=== PATIENT | male | born 1950 | race Caucasian/White ===

== ENCOUNTER 2021-09-25 10:06 | Observation (INO) ==
--- NOTE | 2021-09-25 10:42 | Emergency Department Note ---
History of Present Illness General Chief Complaint: Chest Pain Stated Complaint: CHEST PAIN,BRADYCARDIA,NOT FEELING WELL Time Seen by Provider: 09/25/21 10:20 History of Present Illness Provider Complaint: chest pain Onset (ago): day(s) 1 Duration: intermittent Pain Location: substernal Pain Radiation: none Severity: moderate Maximum Pain Intensity: 6 Current Pain Intensity: 6 Quality: + heaviness Relieved By: + nothing Exacerbated By: + nothing Context: + recent travel; no recent illness, no recent surgery, no recent immobilization, no trauma/injury or no new medications Associated symptoms: + dyspnea; no nausea, no diaphoresis, no syncope, no palpitations, no fever or no cough Patient is visiting his daughter from [place]. Daughter states that the patient has a known coronary artery disease with a significant occlusion in a vessel however they are not sure which one. 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 Past Med/Surg History Medical History (Updated 09/25/21 @ 13:48 by Benedicto Srivastava) CAD (coronary artery disease) HLD (hyperlipidemia) HTN (hypertension) No pertinent family history Surgical History (Updated 09/25/21 @ 10:40 by Benedicto Srivastava) H/O abdominal aortic aneurysm repair Social History Smoking Status: Current every day smoker Tobacco Type: Cigarettes Feels Safe at Home: Yes Review of Systems A total of 10 systems reviewed and were otherwise negative Physical Exam Vital Signs Vital Signs - 24 hr 09/25/21 10:14 09/25/21 10:27 09/25/21 10:28 Temperature 36.3 C L Temperature Source Skin Pulse Rate 73 73 71 Pulse Rate [Apical] Pulse Rate from SpO2 Sensor 66 72 Pulse Rhythm Regular Pulse Rhythm [Apical] Pulse Strength Normal Pulse Strength [Apical] Respiratory Rate 20 17 19 Respiratory Effort / Characteristics Non-Labored Spontaneous Respiratory Depth Normal Respiratory Pattern Regular Blood Pressure 114/70 135/68 Blood Pressure [Right Arm] Blood Pressure Mean 84 90 Blood Pressure Mean [Right Arm] Blood Pressure Position [Right Arm] Pulse Oximetry 93 93 93 Oxygen Delivery Method Room Air Oxygen Flow Rate Sepsis Recent Fever Within 48 Hours No Sepsis New/Unexplained Change in Mental Status N/A Sepsis Action Taken by Nursing No Action Required 09/25/21 10:30 09/25/21 10:37 09/25/21 10:39 Temperature Temperature Source Pulse Rate 73 Pulse Rate [Apical] Pulse Rate from SpO2 Sensor 73 Pulse Rhythm Pulse Rhythm [Apical] Pulse Strength Pulse Strength [Apical] Respiratory Rate 19 Respiratory Effort / Characteristics Respiratory Depth Respiratory Pattern Blood Pressure Blood Pressure [Right Arm] Blood Pressure Mean Blood Pressure Mean [Right Arm] Blood Pressure Position [Right Arm] Pulse Oximetry 93 96 97 Oxygen Delivery Method Room Air Room Air Oxygen Flow Rate 0 Sepsis Recent Fever Within 48 Hours Sepsis New/Unexplained Change in Mental Status Sepsis Action Taken by Nursing 09/25/21 10:45 09/25/21 11:00 09/25/21 11:02 Temperature Temperature Source Pulse Rate 65 62 Pulse Rate [Apical] 60 Pulse Rate from SpO2 Sensor 65 61 Pulse Rhythm Pulse Rhythm [Apical] Regular Pulse Strength Pulse Strength [Apical] Normal Respiratory Rate 21 20 20 Respiratory Effort / Characteristics Non-Labored Spontaneous Respiratory Depth Normal Respiratory Pattern Regular Blood Pressure Blood Pressure [Right Arm] 135/68 Blood Pressure Mean Blood Pressure Mean [Right Arm] 90 Blood Pressure Position [Right Arm] Lying Pulse Oximetry 92 92 99 Oxygen Delivery Method Room Air Oxygen Flow Rate Sepsis Recent Fever Within 48 Hours Sepsis New/Unexplained Change in Mental Status Sepsis Action Taken by Nursing 09/25/21 11:15 09/25/21 11:30 09/25/21 11:45 Temperature Temperature Source Pulse Rate 68 64 57 L Pulse Rate [Apical] Pulse Rate from SpO2 Sensor 66 64 58 L Pulse Rhythm Pulse Rhythm [Apical] Pulse Strength Pulse Strength [Apical] Respiratory Rate 15 21 16 Respiratory Effort / Characteristics Respiratory Depth Respiratory Pattern Blood Pressure Blood Pressure [Right Arm] Blood Pressure Mean Blood Pressure Mean [Right Arm] Blood Pressure Position [Right Arm] Pulse Oximetry 91 91 92 Oxygen Delivery Method Oxygen Flow Rate Sepsis Recent Fever Within 48 Hours Sepsis New/Unexplained Change in Mental Status Sepsis Action Taken by Nursing 09/25/21 12:03 09/25/21 12:13 09/25/21 12:15 Temperature Temperature Source Pulse Rate 62 61 62 Pulse Rate [Apical] Pulse Rate from SpO2 Sensor 61 63 Pulse Rhythm Pulse Rhythm [Apical] Pulse Strength Pulse Strength [Apical] Respiratory Rate 18 22 19 Respiratory Effort / Characteristics Respiratory Depth Respiratory Pattern Blood Pressure 109/71 102/63 Blood Pressure [Right Arm] Blood Pressure Mean 83 76 Blood Pressure Mean [Right Arm] Blood Pressure Position [Right Arm] Pulse Oximetry 93 93 Oxygen Delivery Method Oxygen Flow Rate Sepsis Recent Fever Within 48 Hours Sepsis New/Unexplained Change in Mental Status Sepsis Action Taken by Nursing 09/25/21 12:20 Temperature Temperature Source Pulse Rate 66 Pulse Rate [Apical] Pulse Rate from SpO2 Sensor 66 Pulse Rhythm Pulse Rhythm [Apical] Pulse Strength Pulse Strength [Apical] Respiratory Rate 21 Respiratory Effort / Characteristics Respiratory Depth Respiratory Pattern Blood Pressure 101/61 Blood Pressure [Right Arm] Blood Pressure Mean 74 Blood Pressure Mean [Right Arm] Blood Pressure Position [Right Arm] Pulse Oximetry 93 Oxygen Delivery Method Oxygen Flow Rate Sepsis Recent Fever Within 48 Hours Sepsis New/Unexplained Change in Mental Status Sepsis Action Taken by Nursing Physical Exam GENERAL: He is oriented to person, place, and time. He appears well-developed and well-nourished. He does not appear distressed. HENT: Exam performed. - Head: Normocephalic and atraumatic. - Right Ear: External ear normal. No mastoid tenderness. - Left Ear: External ear normal. No mastoid tenderness. - Mouth/Throat: The oropharynx is clear and moist. No trismus in the jaw. No dental abscesses or uvula swelling. No oropharyngeal exudate or tonsillar abscesses. EYES: Conjunctivae and EOM are normal. Pupils are equal, round, and reactive to light. Right eye exhibits no discharge. Left eye exhibits no discharge. No scleral icterus. NECK: Normal range of motion. Neck supple. No JVD present. No spinous process tenderness present. No carotid bruit present. No rigidity. No tracheal deviation and normal range of motion present. No Brudzinski's sign and no Kernig's sign noted. CV: Normal rate, regular rhythm, normal heart sounds and intact distal pulses. There is no peripheral edema. Palpable radial pulses bue. PULM/CHEST: Effort normal and breath sounds normal. No respiratory distress. No stridor. He has no wheezes. He has no rales. - Chest Wall: He exhibits no tenderness. ABD: The abdomen is soft. Bowel sounds are normal. He has no distension. No mass is present. There is no tenderness. There is no rebound, no guarding, no Dyer's sign and no tenderness at McBurney's point. Rovsig negative. MUSC/SKEL: Normal range of motion. There is no peripheral edema, tenderness or deformity. LYMPH: No cervical adenopathy. NEURO: He is alert and oriented to person, place, and time. He has normal strength. No cranial nerve deficit or sensory deficit. Coordination and gait normal. GCS eye subscore is 4. GCS verbal subscore is 5. GCS motor subscore is 6. Cerebellar tests wnl. SKIN: Skin is warm and dry. He is not diaphoretic. PSYCH: He has a normal mood and affect. Behavior is normal. Judgment and thought content normal. Course Course 1027: The patient was evaluated in room B10. A complete history and physical exam was performed Cardiac monitoring: An order was placed for continuous cardiac monitoring. The monitor shows a rate of 70 with sinus rhythm 1245: Vital signs stable. Labs within normal limits with exception of elevated D-dimer. CTA of the chest negative for PE. Patient does report his chest pain has resolved status post 1 sublingual nitroglycerin. Patient will be admitted to the [facility]ist team for chest pain rule out ACS Dr. Prince team notified. Administered Medications Discontinued Medications Aspirin (Aspirin 81 Mg Chew) 324 mg PO NOW STA Stop: 09/25/21 12:10 Last Admin: 09/25/21 12:14 Dose: 324 mg Documented by: [id number] Ioversol (Optiray 320 125ml) 120 ml IV ONCE ONE Stop: 09/25/21 12:06 Last Admin: 09/25/21 11:59 Dose: 120 ml Documented by: [id number] Nitroglycerin (Nitroglycerin Sl 0.4 Mg/Tab Tab) 0.4 mg SL NOW STA Stop: 09/25/21 12:10 Last Admin: 09/25/21 12:14 Dose: 0.4 mg Documented by: [id number] Medical Decision Making Laboratory Data Result diagrams: 09/25/21 10:35 09/25/21 10:35 Labs: Lab Results 09/25/21 09/25/21 09/25/21 Range/Units 10:35 10:35 10:35 WBC 7.78 (4.8-10.8) K/ul RBC 5.33 (4.63-6.08) M/uL Hgb 16.1 (14.0-18.0) g/dl Hct 48.4 (40.1-51.0) % MCV 90.8 (80.0-100.0) fL MCH 30.2 (25.0-34.0) pg MCHC 33.3 (32.0-36.0) g/dL RDW Std Deviation 47.4 H (36.4-46.3) fL RDW Coeff of Lefty 14.2 (11.5-14.5) % Plt Count 217 (130-400) K/uL MPV 10.2 (9.4-12.4) fL Immature Gran % (Auto) 0.5 % Neut % (Auto) 69.2 % Lymph % (Auto) 17.2 % [place] % (Auto) 9.5 % Eos % (Auto) 3.1 % Baso % (Auto) 0.5 % Neut # (Auto) 5.38 (1.4-6.5) K/uL Lymph # (Auto) 1.34 (1.2-3.4) K/uL [place] # (Auto) 0.74 (0.24-0.82) K/uL Eos # (Auto) 0.24 (0-0.50) K/uL Baso # (Auto) 0.04 (0-0.2) K/uL Immature Gran # (Auto) 0.04 H (0.00-0.02) K/uL PT 12.0 (9.0-12.0) Seconds INR 1.1 (0.9-1.1) APTT 32.0 H (21.0-31.0) Seconds PTT Ratio 1.2 D-Dimer 4150 H* (0-500) ug/L FEU Sodium 136 (136-145) mmol/L Potassium 4.3 (3.5-5.1) mmol/L Chloride 103 (98-107) mmol/L Carbon Dioxide 27 (21-32) mmol/L Anion Gap 6 (3-11) BUN 18 (6-23) mg/dl Creatinine 1.10 (0.6-1.4) mg/dl Est Cr Clr Drug Dosing 70.6 ml/min Est GFR ( Amer) 77.3 ml/min Est GFR (Non-Af Amer) 66.7 ml/min BUN/Creatinine Ratio 16.4 (10-20) Glucose 125 H (70-99(Fasting)) mg/dl Calcium 9.1 (8.5-10.1) mg/dl Troponin I High Sens 9.7 (0-20) pg/ml Lipase 37 (11-82) U/L SARS-CoV-2, RNA, NAAT (NEGATIVE) 09/25/21 09/25/21 Range/Units 12:25 12:57 WBC (4.8-10.8) K/ul RBC (4.63-6.08) M/uL Hgb (14.0-18.0) g/dl Hct (40.1-51.0) % MCV (80.0-100.0) fL MCH (25.0-34.0) pg MCHC (32.0-36.0) g/dL RDW Std Deviation (36.4-46.3) fL RDW Coeff of Lefty (11.5-14.5) % Plt Count (130-400) K/uL MPV (9.4-12.4) fL Immature Gran % (Auto) % Neut % (Auto) % Lymph % (Auto) % [place] % (Auto) % Eos % (Auto) % Baso % (Auto) % Neut # (Auto) (1.4-6.5) K/uL Lymph # (Auto) (1.2-3.4) K/uL [place] # (Auto) (0.24-0.82) K/uL Eos # (Auto) (0-0.50) K/uL Baso # (Auto) (0-0.2) K/uL Immature Gran # (Auto) (0.00-0.02) K/uL PT (9.0-12.0) Seconds INR (0.9-1.1) APTT (21.0-31.0) Seconds PTT Ratio D-Dimer (0-500) ug/L FEU Sodium (136-145) mmol/L Potassium (3.5-5.1) mmol/L Chloride (98-107) mmol/L Carbon Dioxide (21-32) mmol/L Anion Gap (3-11) BUN (6-23) mg/dl Creatinine (0.6-1.4) mg/dl Est Cr Clr Drug Dosing ml/min Est GFR ( Amer) ml/min Est GFR (Non-Af Amer) ml/min BUN/Creatinine Ratio (10-20) Glucose (70-99(Fasting)) mg/dl Calcium (8.5-10.1) mg/dl Troponin I High Sens 8.8 (0-20) pg/ml Lipase (11-82) U/L SARS-CoV-2, RNA, NAAT NEGATIVE (NEGATIVE) Imaging Data CT scan - chest: Radiologist's impression: CHEST CTA for PULMONARY ARTERIES CT DOSE: 516.52 mGy.cm HISTORY: Left-sided chest pain. Cough. Shortness of breath. TECHNIQUE: Multiaxial CT images of the chest were performed following the intravenous administration of contrast to evaluate the pulmonary arteries. Maximal intensity projection images were also obtained. A dose lowering technique was utilized adhering to the principles of ALARA. COMPARISON STUDY: None. FINDINGS: The heart is borderline enlarged. No pleural or pericardial effusions. There is a left aortic arch with an aberrant right subclavian artery. No evidence for a dissection within the ascending thoracic aorta or aortic arch. Inadequate contrast within the descending thoracic aorta to evaluate for a dissection. No filling defects within the pulmonary arteries to suggest a pulmonary embolus. No fractures within the visualized osseous structures. Limited views of the upper abdomen demonstrate a normal liver and spleen. There is mild elevation the right hemidiaphragm. Mild aneurysmal dilatation of the di stal descending thoracic aorta measuring up to 3.8 cm in diameter. The thyroid gland enhances normally. No mediastinal or hilar lymphadenopathy. Normal caliber esophagus. No pneumothorax. The central airways are patent. No focal lung consolidations to suggest pneumonia. No evidence for pulmonary edema. IMPRESSION: 1. No evidence for pulmonary embolus. 2. No focal lung consolidations to suggest pneumonia. 3. Mild aneurysmal dilatation of the distal descending thoracic aorta measuring up to 3.[address] ACT 112: Negative or not required by law. Electronically signed by: Ricardo Kasper M.D. 09/25/2021 12:25 PM Dictated:09/25/21 1213 Transcribed: 09/25/21 1213 Chest x-ray: Radiologist's impression: [facility], [place] [phone] XRay Report Patient:RIKA HEREDIA Admit Date:09/25/21 MR#:[id number] Address1:[address] [place] [address] Acct ID:[id number] Address2: Date:[address] Hospital Zip:[place] [address] Age:70 Location:ED Sex:M Room/Bed: Att Phy: Diagnosis:CHEST PAIN,BRADYCARDIA,NOT FEELING WELL [place] Phy:PCP,NO Service Date:09/25/21 [facility] Phy: Interpreting Phy:Rich Lim MDAdmit Phy: Ordering Phy:Benedicto Srivastava MD cc: ~ XR chest 1V portable CLINICAL HISTORY: Chest Pain TECHNIQUE: Single frontal radiograph of the chest was obtained. Comparison: None available at the time of this dictation. FINDINGS: No lines and tubes are seen. The cardiomediastinal silhouette is normal. The lungs are clear. No evidence of pleural effusion or pneumothorax. IMPRESSION: No acute chest disease. ACT 112: Negative or not required by law. Electronically signed by: Rich Lim M.D. 09/25/2021 11:22 AM Dictated:09/25/211120 Transcribed: 09/25/211120 ECG Data Indication: chest pain Rate (beats per minute): 68 Rhythm: normal sinus Findings: no ST depression, no ST elevation or no prolonged QT MDM Narrative Vital signs stable. Labs within normal limits with exception of elevated D- dimer. CTA of the chest negative for PE. Patient does report his chest pain has resolved status post 1 sublingual nitroglycerin. Patient will be admitted to the [facility] hospitalist team for chest pain rule out ACS Dr. Prince team notified. Impression & Plan Chest pain Discharge Plan Visit Data Chief Complaint: Chest Pain Stated Complaint: CHEST PAIN,BRADYCARDIA,NOT FEELING WELL ED Provider: Benedicto Srivastava Discharge Problem: Chest pain Patient Disposition: Being Evaluated by Hospitalist Forms Stand Alone Forms: My [facility] Referrals Referrals: PCP,NO [Primary Care Provider] -
[2021-09-25 11:05] LABS: Basophils # (auto) 0.04 K/uL (0-0.2); Basophils % (auto) 0.5 %; Eosinophils # (auto) 0.24 K/uL (0-0.50); Eosinophils % (auto) 3.1 %; Hematocrit (blood only) 48.4 % (40.1-51.0); Hemoglobin 16.1 g/dl (14.0-18.0); Immature Granulocytes # (auto) 0.04 K/uL (0.00-0.02); Immature Granulocytes % (auto) 0.5 %; Lymphocytes # (auto) 1.34 K/uL (1.2-3.4); Lymphocytes % (auto) 17.2 %; Mean Corpuscular Hemoglobin 30.2 pg (25.0-34.0); Mean Corpuscular Hgb Conc 33.3 g/dL (32.0-36.0); Mean Corpuscular Volume 90.8 fL (80.0-100.0); Mean Platelet Volume 10.2 fL (9.4-12.4); Monocytes # (auto) 0.74 K/uL (0.24-0.82); Monocytes % (auto) 9.5 %; Neutrophils # (auto) 5.38 K/uL (1.4-6.5); Neutrophils % (auto) 69.2 %; Platelet Count 217 K/uL (130-400); RDW Coefficient of Variation 14.2 % (11.5-14.5); RDW Standard Deviation 47.4 fL (36.4-46.3); Red Blood Count 5.33 M/uL (4.63-6.08); White Blood Count 7.78 K/ul (4.8-10.8)
[2021-09-25 11:17] LABS: INR 1.1 (0.9-1.1); Partial Thromboplastin Ratio 1.2
[2021-09-25 11:19] LABS: BUN Creatinine Ratio 16.4 (10-20); Calcium 9.1 mg/dl (8.5-10.1); Creatinine Clr Calc Pharmacy 70.6 ml/min; Est GFR (African American) 77.3 ml/min; Est GFR (Non-African American) 66.7 ml/min; Potassium 4.3 mmol/L (3.5-5.1)
[2021-09-25 11:20] LABS: D Dimer 4150 ug/L FEU (0-500)
--- NOTE | 2021-09-25 11:23 | XRay Report ---
XR chest 1V portable CLINICAL HISTORY: Chest Pain TECHNIQUE: Single frontal radiograph of the chest was obtained. Comparison: None available at the time of this dictation. FINDINGS: No lines and tubes are seen. The cardiomediastinal silhouette is normal. The lungs are clear. No evid ence of pleural effusion or pneumothorax. IMPRESSION: No acute chest disease. ACT 112: Negative or not required by law. Electronically signed by: Rich Lim M.D. 09/25/2021 11:22 AM
[2021-09-25 11:25] LABS: Troponin I High Sensitivity 9.7 pg/ml (0-20)
[2021-09-25] MEDS ORDERED: OPTIRAY 320 125ml IV ONE (12:05)
[2021-09-25] MEDS ORDERED: NITROGLYCERIN SL 0.4 MG/TAB TAB SL STA (12:09)
[2021-09-25] MEDS ORDERED: ASPIRIN 81 MG CHEW PO STA (12:09)
--- NOTE | 2021-09-25 12:27 | CT Scan Report ---
CHEST CTA for PULMONARY ARTERIES CT DOSE: 516.52 mGy.cm HISTORY: Left-sided chest pain. Cough. Shortness of breath. TECHNIQUE: Multiaxial CT images of the chest were performed following the intravenous administration of contrast to evaluate the pulmonary arteries. Maximal intensity projection images were also obtaine d. A dose lowering technique was utilized adhering to the principles of ALARA. COMPARISON STUDY: None. FINDINGS: The heart is borderline enlarged. No pleural or pericardial effusions. There is a left aort ic arch with an aberrant right subclavian artery. No evidence for a dissection within the ascending t horacic aorta or aortic arch. Inadequate contrast within the descending thoracic aorta to evaluate fo r a dissection. No filling defects within the pulmonary arteries to suggest a pulmonary embolus. No f ractures within the visualized osseous structures. Limited views of the upper abdomen demonstrate a n ormal liver and spleen. There is mild elevation the right hemidiaphragm. Mild aneurysmal dilatation o f the distal descending thoracic aorta measuring up to 3.8 cm in diameter. The thyroid gland enhances normally. No mediastinal or hilar lymphadenopathy. Normal caliber esophagus. No pneumothorax. The ce ntral airways are patent. No focal lung consolidations to suggest pneumonia. No evidence for pulmonar y edema. IMPRESSION: 1. No evidence for pulmonary embolus. 2. No focal lung consolidations to suggest pneumonia. 3. Mild aneurysmal dilatation of the distal descending thoracic aorta measuring up to 3.[address] ACT 112: Negative or not required by law. Electronically signed by: Ricardo Kasper M.D. 09/25/2021 12:25 PM
--- NOTE | 2021-09-25 13:08 | Electrocardiogram Report ---
Test Reason : Blood Pressure : / mmHG Vent. Rate : 068 BPM Atrial Rate : 068 BPM P-R Int : 164 ms QRS Dur : 118 ms QT Int : 404 ms P-R-T Axes : 082 -66 057 degrees QTc Int : 429 ms Poor data quality, interpretation may be adversely affected Normal sinus rhythm Left axis deviation Poor R wave progression, consider anterior NE vs. lead placement vs. LVH Abnormal ECG No previous ECGs available Confirmed by Reji Amaro ([id number]) on 09/25/2021 1:07:37 PM Referred By: Confirmed By:Tony Amaro
--- NOTE | 2021-09-25 14:44 | History & Physical Report ---
Date of Service September 25, 2021 Assessment & Plan (1) Angina at rest: Plan: Patient with coronary artery disease, HLD, current smoker, and family history. Comes to EMD for chest pressure occurring at rest, but relieved with activity. This has waxed and waned over the past 3 days. His Cardiac enzymes are negative, no other ECG available for comparison. DDX: Anginal vs. atypical non cardiac chest pain - Observe overnight for symptoms with prn NTG SL or NTP - Continue BB - Continue ASA - Continue Atorvastatin 20mg PO daily - ECHO in morning - Cardiology consultation for stratification and eval for possible invasive evaluation - Obtain records from [facility] [employer] [facility] is pending (2) CAD (coronary artery disease): Plan: Reported as RCA disease with good collateral flow- however awaiting cardiology records - symptom evaluation/control as above - may need prn ant-anginal if this is cardiac - continue risk reduction meds as above (3) Smoker: Plan: Has decreased his smoking over the past 2-3 years - currently 5 per day - 20+ year history - Continue with nicotene patches PRN (4) PAD (peripheral artery disease): Plan: Hx of femoral aneursym with bypass - continue asa - continue statin (5) HLD (hyperlipidemia): Plan: Continue atorvastatin 20mg daily - adjust if warrented (6) HTN (hypertension): Plan: Well controlled- Lisonpril dose just decreased to 5mg PO daily (7) Aortic root dilation: Plan: No previous studies available for comparison stable on CTA follows with his cardiology and PCP team in [place] History of Present Illness Primary Care Provider: NO PCP 70 YOM with medical history of: Aortic Root dilation, Aortic Aneurysm repair, femoral bypass surgery, CAD (RCA reported), HTN, HLD, current smoker (5 cigarette/day). Patient is from [place] and is in the area visiting family. Patient comes to the EMD today accompanied by his daughters. He came to the EMD for complaints of chest pressure. The pressure began of Saturday after they got home from running errands and shopping, this lasted for approx 20-30 minutes and occurred while he was resting. This was relieved by him getting up and walking around. This occurred again Saturday evening while he was resting and again was relieved by him getting up and walking around. Saturday afternoon he had another episode after he went inside to sit down. This episode was associated with increase in fatigue and possibly some right arm pain, but he is unsure if these occurred at the same time. He had an episode this morning (09/25/21) as well that lasted approx 2-5 minutes and went away. He is currently without these symptoms and his is standing at the bedside. In the EMD the patient had routine labs performed to include D-dimer and HScTNI. The patient HScTNI was negative x2 in the EMD. His D-dimer was elevated and he had CTA of the chest completed that was negative for PE or pulmonary disease. Noted aortic root dilation. His ECG does not reveal acute ST elevation. With no other ECGs to compare- il notable for LVH. The patient follows with his [facility] [employer] in [place] Dr. Small , he originally followed them in 2016 for his dilated aortic root, he reports that he had a cardiac cath done at that time and he had occlusion of his he believes his Right Coronary, but was told that his heart was still getting good blood flow. He was having some chest pains over the past month as well and this led him to getting a dobutamine stress-echo done in August 2019. His family is able to review his my chart information, but these results are not in the computer. They do endorse however that his [employer] mentioned that if his symptoms continued then consider catheterization. He is not on any antianginals as outpatient. Reports that his Lisinopril was decreased from 10-5mg daily secondary to borderline blood pressure. Patient will be observed for symptomatology and any ECG changing. Will attempt to get his previous records from his [employer] office. Will consult cardiology for overall evaluation risk stratification and evaluation for invasive study. COVID test on admission is: NEGATIVE Allergies Allergy/AdvReac Type Severity Reaction Status Date / Time No Known Allergies Allergy Unverified 09/25/21 14:32 Home Medications Medication Instructions Recorded Confirmed Type acetaminophen 500 mg tablet 1,000 mg PO Q6H PRN Pain 09/25/21 09/25/21 History (Tylenol Extra Strength) aspirin 81 mg tablet,delayed 81 mg PO DAILY 09/25/21 09/25/21 History release atorvastatin 20 mg tablet 20 mg PO DAILY 09/25/21 09/25/21 History coenzyme Q10 100 mg capsule 100 mg PO QPM 09/25/21 09/25/21 History (CoQ-10) hydrocortisone 2.5 % topical cream 1 applic ME BID PRN Hemorrhoids 09/25/21 09/25/21 History with perineal applicator ibuprofen 200 mg tablet 800 mg PO Q6H PRN Pain 09/25/21 09/25/21 History lidocaine 5 % topical cream 1 applic topical TID PRN ANORECTAL 09/25/21 09/25/21 History PAIN lisinopril 10 mg tablet 5 mg PO DAILY 09/25/21 09/25/21 History metoprolol succinate 50 mg 50 mg PO DAILY 09/25/21 09/25/21 History tablet,extended release 24 hr [id number]-hxu C 250 1 tab PO BID 09/25/21 09/25/21 History mg-herbal no.124 11.66 mg chewable tablet (Airborne Gummy) sennosides 8.6 mg-docusate sodium 1 tab-cap PO YEARLY PRN 09/25/21 09/25/21 History 50 mg tablet (Senexon-S) Constipation Past Med/Surg History Medical History Aortic root dilation CAD (coronary artery disease) HLD (hyperlipidemia) HTN (hypertension) No pertinent family history Obesity PAD (peripheral artery disease) Smoker Surgical History (Updated 09/25/21 @ 14:34 by VAUGHN Coleman) H/O abdominal aortic aneurysm repair S/P femoral-femoral bypass surgery Family History (Updated 09/25/21 @ 14:35 by VAUGHN Coleman) Mother Cancer Diabetes Brother Coronary heart disease Son Coronary heart disease Father Coronary heart disease Brother Coronary heart disease Sister Diabetes Other Dyslipidemia Hypertension Denies family history of Sudden Kidney disease Lung cancer Stroke Social History Smoking Status: Current every day smoker Tobacco Type: Cigarettes Cigarettes Per Day: 1 pack per 3-4 days; Hx Alcohol Use: Yes Alcohol type: beer Hx Substance Use: No Preferred Language: Romansh Communication Ability: Effective Spring Encaser Required: No Beliefs That Will Affect Care: None Current Living Situation: Alone Feels Safe at Home: Yes Assistive Devices: Cane Review of Systems Review of Systems: REVIEW OF SYSTEMS: Constitutional: No fever, sweats or chills Eyes: No diplopia, no worsening or blurred vision ENT: normal hearing, no trouble swallowing Respiratory: No cough, sputum, dyspnea at rest or on exertion Cardiovascular: (+) chest pain, tightness, NO palpitations Abdomen: No pain, nausea, vomiting, diarrhea or constipation Musculoskeletal: No joint pain, calf pain, swelling Neurologic: No weakness, numbness/tingling, or balance problems Psychiatric: No anxiety or depression Skin: No rash or itch Physical Exam Physical Exam: PHYSICAL EXAM: General: awake, alert, no apparent distress Head: Normocephalic, atraumatic ENT: PERRL, EOMI, no pharyngeal exudate, mucous membranes moist Neuro: AAO x 3, speech clear and appropriate, strength intact bilaterally 5/5, sensation intact and equal all extremities and dermatomes, no pronator drift Chest: equal rise and fall of the chest, no accessory muscle use, no heaves or thirlls, Clear to auscultation, on room air, Cardiac: Regular rate and rhythm, telemetry reviewed, skin warm dry, cap refill <3 seconds, peripheral pulses +2 no JVD, no murmur, no edema GI: NABS x 4 quadrants, soft, nontender to palpation, no rebound, guarding or tenderness : Spontaneously voiding, no pain, no CVA tenderness, MSK: reproducible chest wall pain mid axillary left side- denies this is the same pain he was feeling, no back or cervical pain Psych: Normal mood and affect Skin: no rash or erythema Results & Data Results & Data ([facility]) Vital Signs (Past 12 Hours) Vital Signs Temp Pulse Pulse Resp BP BP Pulse Ox 09/25/21 12:20 66 21 101/61 93 09/25/21 12:15 62 19 102/63 93 09/25/21 12:13 61 22 109/71 93 09/25/21 12:03 62 18 09/25/21 11:45 57 L 16 92 09/25/21 11:30 64 21 91 09/25/21 11:15 68 15 91 09/25/21 11:02 60 20 135/68 99 09/25/21 11:00 62 20 92 09/25/21 10:45 65 21 92 09/25/21 10:39 97 09/25/21 10:37 96 09/25/21 10:30 73 19 93 09/25/21 10:28 71 19 135/68 93 09/25/21 10:27 73 17 93 09/25/21 10:14 36.3 C L 73 20 114/70 93 Laboratory Results Abnormal lab results 09/25/21 09/25/21 09/25/21 Range/Units 10:35 10:35 10:35 RDW Std Deviation 47.4 H (36.4-46.3) fL Immature Gran # (Auto) 0.04 H (0.00-0.02) K/uL APTT 32.0 H (21.0-31.0) Seconds D-Dimer 4150 H* (0-500) ug/L FEU Glucose 125 H (70-99(Fasting)) mg/dl Diagnostic Findings Chest X-Ray 09/25/21 10:20 XR chest 1V portable CLINICAL HISTORY: Chest Pain TECHNIQUE: Single frontal radiograph of the chest was obtained. Comparison: None available at the time of this dictation. FINDINGS: No lines and tubes are seen. The cardiomediastinal silhouette is normal. The lungs are clear. No evidence of pleural effusion or pneumothorax. IMPRESSION: No acute chest disease. ACT 112: Negative or not required by law. Electronically signed by: Rich Lim M.D. 09/25/2021 11:22 AM Chest CTA 09/25/21 11:25 CHEST CTA for PULMONARY ARTERIES CT DOSE: 516.52 mGy.cm HISTORY: Left-sided chest pain. Cough. Shortness of breath. TECHNIQUE: Multiaxial CT images of the chest were performed following the intravenous administration of contrast to evaluate the pulmonary arteries. Maximal intensity projection images were also obtained. A dose lowering tech nique was utilized adhering to the principles of ALARA. COMPARISON STUDY: None. FINDINGS: The heart is borderline enlarged. No pleural or pericardial effusions. There is a left aortic arch with an aberrant right subclavian artery. No evidence for a dissection within the ascending thoracic aorta or aortic arch. Inadequate contrast within the descending thoracic aorta to evaluate for a dissection. No filling defects within the pulmonary arteries to suggest a pulmonary embolus. No fractures within the visualized osseous structures. Limited views of the upper abdomen demonstrate a normal liver and spleen. There is mild elevation the right hemidiaphragm. Mild aneurysmal dilatation of the distal descending thoracic aorta measuring up to 3.8 cm in diameter. The thyroid gland enhances normally. No mediastinal or hilar lymphadenopathy. Normal caliber esophagus. No pneumothorax. The central airways are patent. No focal lung consolidations to suggest pneumonia. No evidence for pulmonary edema. IMPRESSION: 1. No evidence for pulmonary embolus. 2. No focal lung consolidations to suggest pneumonia. 3. Mild aneurysmal dilatation of the distal descending thoracic aorta measuring up to 3.[address] ACT 112: Negative or not required by law. Electronically signed by: Ricardo Kasper M.D. 09/25/2021 12:25 PM Medications Administered Discontinued Medications Aspirin (Aspirin 81 Mg Chew) 324 mg PO NOW STA Stop: 09/25/21 12:10 Last Admin: 09/25/21 12:14 Dose: 324 mg Documented by: [id number] Ioversol (Optiray 320 125ml) 120 ml IV ONCE ONE Stop: 09/25/21 12:06 Last Admin: 09/25/21 11:59 Dose: 120 ml Documented by: [id number] Nitroglycerin (Nitroglycerin Sl 0.4 Mg/Tab Tab) 0.4 mg SL NOW STA Stop: 09/25/21 12:10 Last Admin: 09/25/21 12:14 Dose: 0.4 mg Documented by: [id number] ECG Additional Comments: Normal sinus rhythm Left axis deviation Poor R wave progression, consider anterior MD vs. lead placement vs. LVH Abnormal ECG No previous ECGs available Code Status & VTE Plan Code Status CODE: FULL VTE: SCDS, Lovenox 40mg sub q daily start 09/26 VTE Prophylaxis Plan VTE Prophylaxis will be ordered: Yes Supervising Physician Co-Signing Physician Notes I personally saw and examined the patient. I verified all pereyra points and agree with VAUGHN Bennett with the following exceptions and/or additions: 70 year old male admission for chest pain. Atypical in that it improves on exertion however his [employer] had wanted to perform catheterization for the same pains if they continued. HS1+2, no murmurs, Chest CTAB. Serial troponins, consult cardiology PG Care Time/CCT Total # of Minutes Spent Total Time Spent with Patient: Total time spent is greater than 50% in coordination of care (as documented) at patient's floor/unit and/or counseling patient: Coding Level of Care Code INT OBSERVATION CARE 70M LVL 3 Diagnoses Angina at rest I20.8 CAD (coronary artery disease) I25.10 Smoker F17.200 PAD (peripheral artery disease) I73.9 HLD (hyperlipidemia) E78.5 HTN (hypertension) I10 Aortic root dilation I77.810
[2021-09-25] MEDS ORDERED: DEXTROSE 50% 50 ML SYRINGE IV PRN (15:55)
[2021-09-25] MEDS ORDERED: ONDANSETRON INJ 2 MG/ML 2 ML VIAL IV PRN (15:55)
[2021-09-25] MEDS ORDERED: NITROGLYCERIN SL 0.4 MG/TAB TAB SL PRN (15:55)
[2021-09-25] MEDS ORDERED: GLUCOSE 40% GEL 15 GM TUBE PO PRN (15:55)
[2021-09-25] MEDS ORDERED: GLUCOSE 10 TAB/TUBE PO PRN (15:55)
[2021-09-25] MEDS ORDERED: ACETAMINOPHEN 325 MG TAB PO PRN (15:55)
[2021-09-25] MEDS ORDERED: GLUCAGON FOR INJ 1 MG VIAL SQ PRN (15:55)
[2021-09-25] MEDS ORDERED: CARBOHYDRATES FOR HYPOGLYCEMIA PO PRN (15:55)
[2021-09-25] MEDS ORDERED: DOCUSATE SODIUM/SENNA 50/8.6MG TAB PO PRN (15:55)
--- NOTE | 2021-09-25 17:35 | Cardiology Consultation ---
Date of Consultation September 25, 2021 Assessment & Plan (1) Chest pain: (2) CAD (coronary artery disease): 1. Chest pain: This symptoms are atypical. The seem to occur at rest and improved with activity. This symptom is not substernal but more left pectoral in nature. The episodes themselves have been fairly frequent over the past 3 months and extended in duration at times. He has not had elevated biomarkers in this setting and this would speak against a coronary syndrome. I am not sure any additional cardiac evaluation is necessary at this point. 2. Coronary disease: By report. He has had coronary angiography in the past by report we are trying to obtain some records from [place]. Perhaps this will give us some insight into his most recent testing and symptoms. He appears to be on good medical regimen consisting of a daily aspirin, moderate dose atorvastatin and metoprolol. History of Present Illness Reason for Consultation: Atypical chest pain Requesting Physician: Jasmine Attending Physician: Antonio Prince MD History of Present Illness The patient is a 70-year-old gentleman with a reported history of coronary artery disease who presented to the emergency room today due to symptoms chest discomfort. Patient states that several years ago in preparation for vascular surgery he underwent cardiovascular testing including cardiac catheterization. By report he was noted to have single-vessel disease possibly occlusion of the right coronary artery. Patient was treated conservatively and apparently felt well until a few months ago he began to experience symptoms of chest pain. He actually describes the symptom as a sense of someone poking from the inside. It seems to involve the left lateral chest and does not radiate to the shoulder or jaw or back. Curiously, the symptoms appears to occur when sitting or lying down. It improves with standing up and performing activity. Patient states that this symptom has occurred every day over the past 3 months. At times he will have extended episodes lasting a few hours. Because of the extended nature of his recent episode he decided to come to the emergency room. He states that he continues to have some very mild discomfort. He states this is much improved since admission and seem to improve with administration of nitroglycerin in the emergency room. He is very sedentary individual. He did not report performing any significant exercise. Occasionally with activity he will have some discomfort in the right buttock which requires rest. He does not have any calf claudication. He did not endorse symptoms of dyspnea. He has not noticed any palpitations he sleeps poorly but does not have orthopnea or paroxysmal nocturnal dyspnea. He sees a [facility] [employer] in [place]. By report he had a recent dobutamine echocardiogram. He cannot speak to the exact results. Allergies Allergy/AdvReac Type Severity Reaction Status Date / Time No Known Allergies Allergy Unverified 09/25/21 14:32 Home Medications Medication Instructions Recorded Confirmed Type acetaminophen 500 mg tablet 1,000 mg PO Q6H PRN 09/25/21 09/25/21 History (Tylenol Extra Strength) aspirin 81 mg tablet,delayed 81 mg PO DAILY 09/25/21 09/25/21 History release atorvastatin 20 mg tablet 20 mg PO DAILY 09/25/21 09/25/21 History coenzyme Q10 100 mg capsule 100 mg PO QPM 09/25/21 09/25/21 History (CoQ-10) hydrocortisone 2.5 % topical cream 1 applic ND BID PRN 09/25/21 09/25/21 History with perineal applicator ibuprofen 200 mg tablet 800 mg PO Q6H PRN 09/25/21 09/25/21 History lidocaine 5 % topical cream 1 applic TOPICAL TID PRN 09/25/21 09/25/21 History lisinopril 10 mg tablet 5 mg PO DAILY 09/25/21 09/25/21 History metoprolol succinate 50 mg 50 mg PO DAILY 09/25/21 09/25/21 History tablet,extended release 24 hr mmnajzqk-abwfwmti-kaz C 250 1 tab PO BID 09/25/21 09/25/21 History mg-herbal no.124 11.66 mg chewable tablet (Airborne Gummy) sennosides 8.6 mg-docusate sodium 1 tab-cap PO YEARLY PRN 09/25/21 09/25/21 History 50 mg tablet (Senexon-S) Patient History Medical History Aortic root dilation CAD (coronary artery disease) HLD (hyperlipidemia) HTN (hypertension) No pertinent family history Obesity PAD (peripheral artery disease) Smoker Surgical History (Updated 09/25/21 @ 14:34 by VAUGHN Coleman) H/O abdominal aortic aneurysm repair S/P femoral-femoral bypass surgery Family History (Updated 09/25/21 @ 14:35 by VAUGHN Coleman) Mother Cancer Diabetes Brother Coronary heart disease Son Coronary heart disease Father Coronary heart disease Brother Coronary heart disease Sister Diabetes Other Dyslipidemia Hypertension Denies family history of Sudden Kidney disease Lung cancer Stroke Social History Smoking Status: Current every day smoker Tobacco Type: Cigarettes Cigarettes Per Day: 1 pack per 3-4 days; Tobacco Cessation Education Requested by Patient: No Hx Alcohol Use: Yes Alcohol type: beer Hx Substance Use: No Preferred Language: Comoran Communication Ability: Effective 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 Mood and affect appeared normal. He answered all questions appropriately. HEENT: Pupils are equal and reactive to light and accommodation. Extraocular movements are intact. The sclerae are anicteric. Neuro: Cranial nerves intact Neck: Patient's neck is supple. He has palpable carotid pulses bilaterally without bruits on auscultation. Lungs: Clear to auscultation bilaterally. He has good air movement without use of accessory muscles. No rales wheezes or rhonchi. Cardiac: Heart demonstrates a regular rate and rhythm. Normal S1 and S2. No murmurs on examination. Pulses: The patient has palpable radial pulses bilaterally that are equal in intensity. Normal dorsalis pedis pulses bilaterally Extremities: There was no evidence of hypoperfusion. There is no cyanosis or clubbing. There is no edema. Skin: I did not appreciate any rashes on examination today. Results & Data ([facility]) Vital Signs (Past 12 Hours) Vital Signs Temp Pulse Pulse Resp BP BP Pulse Ox 09/25/21 16:13 64 20 110/65 92 09/25/21 15:43 68 09/25/21 15:00 66 19 118/81 93 09/25/21 13:00 88 19 101/61 99 09/25/21 12:20 66 21 101/61 93 09/25/21 12:15 62 19 102/63 93 09/25/21 12:13 61 22 109/71 93 09/25/21 12:03 62 18 09/25/21 11:45 57 L 16 92 09/25/21 11:30 64 21 91 09/25/21 11:15 68 15 91 09/25/21 11:02 60 20 135/68 99 09/25/21 11:00 62 20 92 09/25/21 10:45 65 21 92 09/25/21 10:39 97 09/25/21 10:37 96 09/25/21 10:30 73 19 93 09/25/21 10:28 71 19 135/68 93 09/25/21 10:27 73 17 93 09/25/21 10:14 36.3 C L 73 20 114/70 93 Laboratory Results Abnormal Lab Results 09/25/21 09/25/21 09/25/21 10:35 10:35 10:35 WBC 7.78 RBC 5.33 Hgb 16.1 Hct 48.4 MCV 90.8 MCH 30.2 MCHC 33.3 RDW Std Deviation 47.4 H RDW Coeff of Lefty 14.2 Plt Count 217 MPV 10.2 Immature Gran % (Auto) 0.5 Neut % (Auto) 69.2 Lymph % (Auto) 17.2 [place] % (Auto) 9.5 Eos % (Auto) 3.1 Baso % (Auto) 0.5 Neut # (Auto) 5.38 Lymph # (Auto) 1.34 [place] # (Auto) 0.74 Eos # (Auto) 0.24 Baso # (Auto) 0.04 Immature Gran # (Auto) 0.04 H PT 12.0 INR 1.1 APTT 32.0 H PTT Ratio 1.2 D-Dimer 4150 H* Sodium 136 Potassium 4.3 Chloride 103 Carbon Dioxide 27 Anion Gap 6 BUN 18 Creatinine 1.10 Est Cr Clr Drug Dosing 70.6 Est GFR ( Amer) 77.3 Est GFR (Non-Af Amer) 66.7 BUN/Creatinine Ratio 16.4 Glucose 125 H POC Glucose Calcium 9.1 Troponin I High Sens 9.7 Lipase 37 SARS-CoV-2, RNA, NAAT 09/25/21 09/25/21 09/25/21 12:25 12:57 16:44 WBC RBC Hgb Hct MCV MCH MCHC RDW Std Deviation RDW Coeff of [place]efty Plt Count MPV Immature Gran % (Auto) Neut % (Auto) Lymph % (Auto) [place] % (Auto) Eos % (Auto) Baso % (Auto) Neut # (Auto) Lymph # (Auto) [place] # (Auto) Eos # (Auto) Baso # (Auto) Immature Gran # (Auto) PT INR APTT PTT Ratio D-Dimer Sodium Potassium Chloride Carbon Dioxide Anion Gap BUN Creatinine Est Cr Clr Drug Dosing Est GFR ( Amer) Est GFR (Non-Af Amer) BUN/Creatinine Ratio Glucose POC Glucose 130 H Calcium Troponin I High Sens 8.8 Lipase SARS-CoV-2, RNA, NAAT NEGATIVE Diagnostic Findings Chest CTA was performed which did not reveal any pulmonary embolus. No other acute cardiopulmonary findings. Distal descending thoracic aorta measured 3.8 cm Chest x-ray was obtained in the emergency room which did not reveal any acute cardiopulmonary process. ECG Additional Comments: EKG demonstrated normal sinus rhythm with a mild nonspecific interventricular conduction delay. No ischemic changes. PG Care Time/CCT Total # of Minutes Spent Total Time Spent with Patient: Total time spent is greater than 50% in coordination of care (as documented) at patient's floor/unit and/or counseling patient: Coding Level of Care Code INT OBSERVATION CARE 70M LVL 3 Diagnoses Chest pain R07.9 Chest pain type: unspecified CAD (coronary artery disease) I25.10 (1) Chest pain Chest pain type: unspecified Qualified Code(s): R07.9 - Chest pain, unspecified
[2021-09-25] MEDS ORDERED: METOPROLOL SUCC 50MG EXT REL TAB PO SCH (21:00)
[2021-09-25] MEDS ORDERED: ATORVASTATIN 20 MG TAB PO SCH (21:00)
[2021-09-26 06:07] LABS: Basophils # (auto) 0.04 K/uL (0-0.2); Basophils % (auto) 0.4 %; Eosinophils # (auto) 0.31 K/uL (0-0.50); Eosinophils % (auto) 3.5 %; Hematocrit (blood only) 47.7 % (40.1-51.0); Hemoglobin 15.9 g/dl (14.0-18.0); Immature Granulocytes # (auto) 0.04 K/uL (0.00-0.02); Immature Granulocytes % (auto) 0.4 %; Lymphocytes # (auto) 1.87 K/uL (1.2-3.4); Lymphocytes % (auto) 20.8 %; Mean Corpuscular Hemoglobin 30.1 pg (25.0-34.0); Mean Corpuscular Hgb Conc 33.3 g/dL (32.0-36.0); Mean Corpuscular Volume 90.3 fL (80.0-100.0); Monocytes # (auto) 1.01 K/uL (0.24-0.82); Monocytes % (auto) 11.3 %; Neutrophils % (auto) 63.6 %; Platelet Count 206 K/uL (130-400); RDW Coefficient of Variation 14.1 % (11.5-14.5); RDW Standard Deviation 47.2 fL (36.4-46.3); Red Blood Count 5.28 M/uL (4.63-6.08); White Blood Count 8.97 K/ul (4.8-10.8)
[2021-09-26 06:26] LABS: BUN Creatinine Ratio 17.9 (10-20); Calcium 8.9 mg/dl (8.5-10.1); Chol HDL Ratio 4.1 (0-5); Creatinine Clr Calc Pharmacy 73.3 ml/min; Est GFR (African American) 80.9 ml/min; Est GFR (Non-African American) 69.8 ml/min; Magnesium 2.1 mg/dl (1.7-2.4); Potassium 4.3 mmol/L (3.5-5.1)
[2021-09-26 08:47] LABS: Estimated Average Glucose 120 mg/dl; Hemoglobin A1C 5.8 % (4.5-5.6)
[2021-09-26] MEDS ORDERED: ATORVASTATIN 20 MG TAB PO SCH (09:00)
[2021-09-26] MEDS ORDERED: lisinopril 5 MG TAB PO SCH (09:00)
[2021-09-26] MEDS ORDERED: METOPROLOL SUCC 50MG EXT REL TAB PO SCH (09:00)
[2021-09-26] MEDS ORDERED: ASPIRIN 81 MG ECTAB PO SCH (09:00)
[2021-09-26] MEDS ORDERED: ENOXAPARIN INJ 40 MG/0.4 ML SYR SQ SCH (09:00)
--- NOTE | 2021-09-26 12:09 | Electrocardiogram Report ---
Test Reason : Blood Pressure : / mmHG Vent. Rate : 070 BPM Atrial Rate : 070 BPM P-R Int : 164 ms QRS Dur : 130 ms QT Int : 422 ms P-R-T Axes : 029 -72 060 degrees QTc Int : 455 ms Sinus rhythm with occasional Premature ventricular complexes Left axis deviation Possible old inferior TN Poor R wave progression, consider anterior TN vs. lead placement vs. LVH Abnormal ECG When compared with ECG of 25-SEP-2021 10:27, Premature ventricular complexes are now Present Confirmed by Reji Amaro ([id number]) on 09/26/2021 12:09:02 PM Referred By: REFERRED SELF Confirmed By:Tony Amaro
--- NOTE | 2021-09-26 12:24 | Hospitalist Progress Note ---
Date of Service September 26, 2021 Assessment & Plan (1) Angina at rest: Plan: Patient presents to the hospital with left-sided chest pain which has been going on for 3 days prior to presentation. He states he obtained some relief by clutching on his chest whenever the pain comes. Here in the hospital, troponins have been negative, EKG has not shown any ST changes. Patient is on statin metoprolol aspirin at home. He follows up with a catering server and said he has done angiogram and also due to dobutamine echo, we are waiting for results. Carpenter Inspector consulted, appreciate recommendations (2) CAD (coronary artery disease): Plan: Reported as RCA disease with good collateral flow- however awaiting cardiology records - symptom evaluation/control as above - may need prn ant-anginal if this is cardiac - continue risk reduction meds as above (3) Smoker: Plan: Has decreased his smoking over the past 2-3 years - currently 5 per day - 20+ year history - Continue with nicotene patches PRN (4) PAD (peripheral artery disease): Plan: Hx of femoral aneursym with bypass - continue asa - continue statin (5) HLD (hyperlipidemia): Plan: Continue atorvastatin 20mg daily - adjust if warrented (6) HTN (hypertension): Plan: Well controlled- Lisonpril dose just decreased to 5mg PO daily (7) Aortic root dilation: Plan: No previous studies available for comparison stable on CTA follows with his cardiology and PCP team in [place] Admission and Anticipated Discharge Date Admission Date: September 25, 2021 Subjective patient seen and examined, sitting up in the chair, said his chest pain has resolved Review of Systems Review of Systems: All systems reviewed are negative, apart from the ones contained in the history. Physical Exam Physical Exam: The patient is awake, alert and oriented 3, well developed and well nourished, normocephalic and atraumatic, lying in bed and in no acute distress. HEENT--PERRL, EOMI, mucous membranes and oropharynx mildly dry Neck--supple. No JVD. No bruits. Thyroid normal, trachea midline, no adenopathy. Heart--normal S1 and S2. No murmurs, rubs or gallops. Lungs--clear bilaterally, no respiratory distress, no accessory muscle use. Abdomen--normal bowel sounds and soft. Mild epigastric and left sided abdominal pain Extremities--no cyanosis or clubbing. No edema. Dermatologic--normal skin turgor, normal color, no abnormal lymph nodes, no rash. Neurologic--cranial nerves II through XII grossly intact. Rheumatologic--normal range of motion. Psychiatric--normal affect. Results & Data Results & Data ([facility]) Vital Signs (Past 12 Hours) Vital Signs Temp Pulse Pulse Pulse Resp BP Pulse Ox 09/26/21 11:30 97.7 F 72 16 99/59 L 92 09/26/21 07:38 97.6 F 68 16 111/69 90 09/26/21 07:18 68 09/26/21 03:21 97.7 F 65 16 130/75 95 PG Care Time/CCT Total # of Minutes Spent Total Time Spent with Patient: Total time spent is greater than 50% in coordination of care (as documented) at patient's floor/unit and/or counseling patient: Coding Level of Care Code 62357 Subseq Hosp Care Lvl 2 Diagnoses Angina at rest I20.8 CAD (coronary artery disease) I25.10 Smoker F17.200 PAD (peripheral artery disease) I73.9 HLD (hyperlipidemia) E78.5 HTN (hypertension) I10 Aortic root dilation I77.810 Time Spent (min) 35
--- NOTE | 2021-09-26 16:12 | Discharge Summary ---
Date of Service September 26, 2021 Admission HPI Per Admitting Provider 70 YOM with medical history of: Aortic Root dilation, Aortic Aneurysm repair, femoral bypass surgery, CAD (RCA reported), HTN, HLD, current smoker (5 cigarette/day). Patient is from [place] and is in the area visiting family. Patient comes to the EMD today accompanied by his daughters. He came to the [facility] for complaints of chest pressure. The pressure began of Saturday after they got home from running errands and shopping, this lasted for approx 20-30 minutes and occurred while he was resting. This was relieved by him getting up and walking around. This occurred again Saturday evening while he was resting and again was relieved by him getting up and walking around. Saturday afternoon he had another episode after he went inside to sit down. This episode was associated with increase in fatigue and possibly some right arm pain, but he is unsure if these occurred at the same time. He had an episode this morning (09/25/21) as well that lasted approx 2-5 minutes and went away. He is currently without these symptoms and his is standing at the bedside. In the EMD the patient had routine labs performed to include D-dimer and HScTNI. The patient HScTNI was negative x2 in the EMD. His D-dimer was elevated and he had CTA of the chest completed that was negative for PE or pulmonary disease. Noted aortic root dilation. His ECG does not reveal acute ST elevation. With no other ECGs to compare- il notable for LVH. The patient follows with his manager event in [place] Dr. Small , he originally followed them in 2016 for his dilated aortic root, he reports that he had a cardiac cath done at that time and he had occlusion of his he believes his Right Coronary, but was told that his heart was still getting good blood flow. He was having some chest pains over the past month as well and this led him to getting a dobutamine stress-echo done in August 2019. His family is able to review his my chart information, but these results are not in the computer. They do endorse however that his manager event mentioned that if his symptoms continued then consider catheterization. He is not on any antianginals as outpatient. Reports that his Lisinopril was decreased from 10-5mg daily secondary to borderline blood pressure. Patient will be observed for symptomatology and any ECG changing. Will attempt to get his previous records from his manager event office. Will consult cardiology for overall evaluation risk stratification and evaluation for invasive study. COVID test on admission is: NEGATIVE Principal Diagnosis atypical chest pain Discharge Exam The patient is awake, alert and oriented 3, well developed and well nourished, normocephalic and atraumatic, lying in bed and in no acute distress. HEENT--PERRL, EOMI, mucous membranes and oropharynx mildly dry Neck--supple. No JVD. No bruits. Thyroid normal, trachea midline, no adenopathy. Heart--normal S1 and S2. No murmurs, rubs or gallops. Lungs--clear bilaterally, no respiratory distress, no accessory muscle use. Abdomen--normal bowel sounds and soft. Mild epigastric and left sided abdominal pain Extremities--no cyanosis or clubbing. No edema. Dermatologic--normal skin turgor, normal color, no abnormal lymph nodes, no rash. Neurologic--cranial nerves II through XII grossly intact. Rheumatologic--normal range of motion. Psychiatric--normal affect. Discharge Data Allergies Allergy/AdvReac Type Severity Reaction Status Date / Time No Known Allergies Allergy Unverified 09/25/21 14:32 Consultations 09/25/21 12:45 ED Decision to Admit Stat 09/25/21 15:55 Consult Cardiology Routine Ordered Studies 09/25/21 11:25 CT angio chest PE protocol Stat Hospital Course (1) Angina at rest: Patient presents to the hospital with left-sided chest pain which has been going on for 3 days prior to presentation. He states he obtained some relief by clutching on his chest whenever the pain comes. Here in the hospital, troponins have been negative, EKG has not shown any ST changes. Patient is on statin metoprolol aspirin at home. He follows up with a manager event and said he has done angiogram and also due to dobutamine echo, we are waiting for results. Roving Teller consulted, appreciate recommendations (2) CAD (coronary artery disease): Reported as RCA disease with good collateral flow- however awaiting cardiology records - symptom evaluation/control as above - may need prn ant-anginal if this is cardiac - continue risk reduction meds as above (3) Smoker: Has decreased his smoking over the past 2-3 years - currently 5 per day - 20+ year history - Continue with nicotene patches PRN (4) PAD (peripheral artery disease): Hx of femoral aneursym with bypass - continue asa - continue statin (5) HLD (hyperlipidemia): Continue atorvastatin 20mg daily - adjust if warrented (6) HTN (hypertension): Well controlled- Lisonpril dose just decreased to 5mg PO daily (7) Aortic root dilation: No previous studies available for comparison stable on CTA follows with his cardiology and PCP team in [place] Total Time Total Time Spent Total Time Spent (In Minutes): 35 Discharge Plan Discharge Items Patient Disposition: Home - Self-Care Reason For Visit: CHEST PAIN,UNSTABLE ANGINA Discharge Diagnosis: Atypical chest pain Activity: Resume your previous activity Non-emergency contact: Primary Care Provider and Roving Teller Call non-emergency contact if: you have any medication questions Follow-up/Referrals: Mihai Abrmas MD [Primary Care Provider] - Diet: Regular Addtl Attending Provider Instructions: please make appointment to follow up with your regular doctors Pending Studies at Discharge: No Stand-Alone Forms: [facility] eblizz, Smoking Cessation Medications and DC Order Prescriptions: Continued atorvastatin 20 mg tablet 20 mg PO DAILY RF: 0 lidocaine 5 % Cream 1 applic TOPICAL TID PRN (Reason: ANORECTAL PAIN) RF: 0 metoprolol succinate 50 mg tablet extended release 24 hr 50 mg PO DAILY RF: 0 sennosides-docusate sodium [Senexon-S] 8.6-50 mg Tablet 1 tab-cap PO YEARLY PRN (Reason: Constipation) RF: 0 aspirin 81 mg Tablet,Delayed Release (Dr/Ec) 81 mg PO DAILY RF: 0 acetaminophen [Tylenol Extra Strength] 500 mg Tablet 1,000 mg PO Q6H PRN (Reason: Pain) RF: 0 hydrocortisone 2.5 % Cream With Perineal Applicator 1 applic WA BID PRN (Reason: Hemorrhoids) RF: 0 lisinopril 10 mg tablet 5 mg PO DAILY RF: 0 ibuprofen 200 mg Tablet 800 mg PO Q6H PRN (Reason: Pain) RF: 0 coenzyme Q10 [CoQ-10] 100 mg Capsule 100 mg PO QPM RF: 0 Airborne Gummy 250-11.66 mg Tablet,Chewable 1 tab PO BID RF: 0 Discharge Orders: Discharge Order (Routine); Ordered 07/12/22 Ordered By: Kylee Jacobsen Admission Data Admit Date/Time: 09/25/21 14:11 Attending Provider: Kylee Jacobsen Admit Provider: Antonoi Prince Primary Care Provider: Mihai Abrams Other Providers: Antonio Prince ; Reji Amaro Coding Level of Care Code D/C DAY MANAGEMENT >30 MINS Diagnoses Angina at rest I20.8 CAD (coronary artery disease) I25.10 Smoker F17.200 PAD (peripheral artery disease) I73.9 HLD (hyperlipidemia) E78.5 HTN (hypertension) I10 Aortic root dilation I77.810 Time Spent (min) 35
--- NOTE | 2021-09-26 16:26 | XCELERA ---
[id number] \\[id number]
--- NOTE | 2021-09-26 16:32 | Cardiology Progress Note ---
Date of Service September 26, 2021 Assessment & Plan (1) Chest pain: (2) CAD (coronary artery disease): Plan: 1. Chest pain: Given the extended nature and recurrent nature of his symptoms in the absence of any biomarker elevation I think we can definitively say his current symptoms are not related to coronary insufficiency, angina or unstable coronary syndrome. I do not believe he requires any additional cardiovascular evaluation in this regard. 2. Coronary disease: By report. He does have a wall motion abnormality on his echocardiogram. Does not report symptoms consistent with congestive heart failure. His current symptoms do not appear to be anginal in nature. He should continue his daily aspirin, moderate dose atorvastatin, lisinopril and metoprolol succinate. He can follow up with his usual apprenticeship training representative in [place] for continued management. Admission and Anticipated Discharge Date Admission Date: September 25, 2021 Subjective This afternoon the patient reports some persistent left-sided chest pain. This seemed to start after eating lunch. It is improving currently without any specific treatment. did not have much in the way of symptoms this morning. He actually ambulated around the lim and felt well. Otherwise comfortable. Review of Systems Review of Systems: Per HPI Physical Exam Physical Exam: The patient is alert and oriented. Mood and affect appeared normal. He answered all questions appropriately. HEENT: Pupils are equal and reactive to light and accommodation. Extraocular movements are intact. The sclerae are anicteric. Neuro: Cranial nerves intact. Lungs: Normal respiratory effort. Extremities: There was no evidence of hypoperfusion. There is no cyanosis or clubbing. There is no edema. Skin: I did not appreciate any rashes on examination today. Results & Data ([facility]) Vital Signs (Past 12 Hours) Vital Signs Temp Pulse Pulse Pulse Resp BP BP 09/26/21 16:14 36.6 C 65 66 16 113/70 112/62 09/26/21 15:31 68 09/26/21 14:59 36.6 C 66 16 113/70 09/26/21 11:30 36.5 C 72 16 99/59 L 09/26/21 07:38 36.4 C 68 16 111/69 09/26/21 07:18 68 Pulse Ox 09/26/21 16:14 92 09/26/21 15:31 09/26/21 14:59 92 09/26/21 11:30 92 09/26/21 07:38 90 09/26/21 07:18 Laboratory Results Abnormal Lab Results 09/25/21 09/25/21 09/26/21 16:44 23:14 05:34 WBC 8.97 RBC 5.28 Hgb 15.9 Hct 47.7 MCV 90.3 MCH 30.1 MCHC 33.3 RDW Std Deviation 47.2 H RDW Coeff of Lefty 14.1 Plt Count 206 MPV 10.0 Immature Gran % (Auto) 0.4 Neut % (Auto) 63.6 Lymph % (Auto) 20.8 Lamar % (Auto) 11.3 Eos % (Auto) 3.5 Baso % (Auto) 0.4 Neut # (Auto) 5.70 Lymph # (Auto) 1.87 Lamar # (Auto) 1.01 H Eos # (Auto) 0.31 Baso # (Auto) 0.04 Immature Gran # (Auto) 0.04 H Sodium Potassium Chloride Carbon Dioxide Anion Gap BUN Creatinine Est Cr Clr Drug Dosing Est GFR ( Amer) Est GFR (Non-Af Amer) BUN/Creatinine Ratio Glucose POC Glucose 130 H 113 H Estimat Average Glucose Hemoglobin A1c Calcium Magnesium Troponin I High Sens Triglycerides Cholesterol LDL Cholesterol, Calc VLDL Cholesterol, Calc HDL Cholesterol Cholesterol/HDL Ratio 09/26/21 09/26/21 09/26/21 05:34 05:34 11:52 WBC RBC Hgb Hct MCV MCH MCHC RDW Std Deviation RDW Coeff of Lefty Plt Count MPV Immature Gran % (Auto) Neut % (Auto) Lymph % (Auto) Lamar % (Auto) Eos % (Auto) Baso % (Auto) Neut # (Auto) Lymph # (Auto) Lamar # (Auto) Eos # (Auto) Baso # (Auto) Immature Gran # (Auto) Sodium 135 L Potassium 4.3 Chloride 103 Carbon Dioxide 26 Anion Gap 6 BUN 19 Creatinine 1.06 Est Cr Clr Drug Dosing 73.3 Est GFR ( Amer) 80.9 Est GFR (Non-Af Amer) 69.8 BUN/Creatinine Ratio 17.9 Glucose 101 H POC Glucose 134 H Estimat Average Glucose 120 Hemoglobin A1c 5.8 H Calcium 8.9 Magnesium 2.1 Troponin I High Sens Triglycerides 127 Cholesterol 106 LDL Cholesterol, Calc 55 VLDL Cholesterol, Calc 25 HDL Cholesterol 26 Cholesterol/HDL Ratio 4.1 09/26/21 14:14 WBC RBC Hgb Hct MCV MCH MCHC RDW Std Deviation RDW Coeff of Lefty Plt Count MPV Immature Gran % (Auto) Neut % (Auto) Lymph % (Auto) Lamar % (Auto) Eos % (Auto) Baso % (Auto) Neut # (Auto) Lymph # (Auto) Lamar # (Auto) Eos # (Auto) Baso # (Auto) Immature Gran # (Auto) Sodium Potassium Chloride Carbon Dioxide Anion Gap BUN Creatinine Est Cr Clr Drug Dosing Est GFR ( Amer) Est GFR (Non-Af Amer) BUN/Creatinine Ratio Glucose POC Glucose Estimat Average Glucose Hemoglobin A1c Calcium Magnesium Troponin I High Sens 7.9 Triglycerides Cholesterol LDL Cholesterol, Calc VLDL Cholesterol, Calc HDL Cholesterol Cholesterol/HDL Ratio Diagnostic Findings Echocardiogram performed today revealed low normal LV systolic function with an ejection fraction around 50%. Was regional wall motion abnormality with hypokinesis of the inferior apex and distal inferior wall. PG Care Time/CCT Total # of Minutes Spent Total Time Spent with Patient: Total time spent is greater than 50% in coordination of care (as documented) at patient's floor/unit and/or counseling patient: Coding Level of Care Code 75254 Subseq Obs Care Lvl 2 Diagnoses Chest pain R07.9 Chest pain type: unspecified CAD (coronary artery disease) I25.10 (1) Chest pain Chest pain type: unspecified Qualified Code(s): R07.9 - Chest pain, unspecified
--- NOTE | 2021-09-26 16:56 | Electrocardiogram Report ---
Test Reason : Blood Pressure : / mmHG Vent. Rate : 071 BPM Atrial Rate : 071 BPM P-R Int : 160 ms QRS Dur : 122 ms QT Int : 406 ms P-R-T Axes : 046 -73 057 degrees QTc Int : 441 ms Normal sinus rhythm Left axis deviation Possible old inferior MA Poor R wave progression, consider anterior MA vs. lead placement vs. LVH Abnormal ECG When compared with ECG of 26-SEP-2021 03:24, Premature ventricular complexes are no longer Present Confirmed by Reji Amaro ([id number]) on 09/26/2021 4:56:02 PM Referred By: REFERRED SELF Confirmed By:Tony Amaro
== END 2021-09-26 18:19 | disposition home or self-care (01) ==
LOC: 2N 10:06 → ED 10:06 → SUATTDRO 14:11 → 2N 15:23

== ENCOUNTER 2024-05-20 08:29 | Inpatient (IN) ==
--- NOTE | 2024-05-12 11:27 | Anesthesiology Consultation ---
Date of Service May 12, 2024 Assessment & Plan (1) Encounter for pre-operative examination: Plan - patient is scheduled for pre-operative evaluation with [place] cardiology 05/13/24- patient confirmed details. - patient reported occasional chest discomfort at rest which appears different to 2021 left sided chest discomfort. Patient reported last cardiology evaluation was in 2021. Case discussed in detail with Dr. Dalton who advised attempting to schedule pre-operative evaluation with cardiology prior to surgery, patient already advised on calling if symptoms do not resolve by surgery date re: below. - ER 05/08/24 [facility]: "...EKG noted with normal troponin. Labs reviewed as were chest xray...cough, runny nose, and nasal congestion...outpatient laboratory studies and a chest x-ray done for presurgery today. However, he states that his family doctor did not like how the right side of his chest x-ray looked and sent him to the ER...has been sick for the past 2 days. No fevers. He sounds like he is wheezing..has an albuterol at home, but no history of COPD or wheezing per patient. He is a smoker. Also has some discomfort in his chest from the coughing. However, denies cardiac type chest pain. Denies abdominal pain, nausea, or vomiting. He just started Plavix a couple days ago for a blockage in his carotid artery. He saw Dr. Cox today and is scheduled for intervention for the blockage on 05/20/24...There are stable findings on the chest x-ray, but no obvious changes from his previous chest x-ray and no acute cardiopulmonary etiology..." - Per a and p technician on 05/12/24: Patient instructed can proceed if asymptomatic by PAT RN team-no COVID test needed given symptom onset greater than 11 days from procedure date. Chart Review Chart Review: Pending: Refer to Additional Notes / Consult section and Patient NOT seen in Pre Admission Testing History Surgery Operation Date: 05/20/24 09:45 Proposed Procedures p Left Transcarotid Artery Revascularization - Ron Cox MD Height/Weight Height: 5 ft 9 in Weight: 106 kg Allergies Allergy/AdvReac Type Severity Reaction Status Date / Time cephalexin [From Keflex] Allergy Severe Anaphylaxis Verified 05/12/24 10:18 Penicillins Allergy Severe Anaphylaxis Verified 05/12/24 10:18 Medications Home Medications Medication Instructions Recorded Confirmed Last Taken acetaminophen 500 mg tablet 1,000 mg PO Q6H PRN Pain 09/25/21 05/12/24 Unknown (Tylenol Extra Strength) aspirin 81 mg tablet,delayed 81 mg PO QAM 09/25/21 05/12/24 Unknown release atorvastatin 20 mg tablet 10 mg PO PM 09/25/21 05/12/24 Unknown coenzyme Q10 100 mg capsule 100 mg PO QPM 09/25/21 05/12/24 Unknown (CoQ-10) hydrocortisone 2.5 % topical cream 1 applic SC BID PRN Hemorrhoids 09/25/21 05/12/24 Unknown with perineal applicator ibuprofen 200 mg tablet 800 mg PO Q6H PRN Pain 09/25/21 05/12/24 Unknown lidocaine 5 % topical cream 1 applic topical TID PRN ANORECTAL 09/25/21 05/12/24 Unknown PAIN metoprolol succinate 50 mg 25 mg PO PM 09/25/21 05/12/24 Unknown tablet,extended release 24 hr sennosides 8.6 mg-docusate sodium 1 tab-cap PO YEARLY PRN 09/25/21 05/12/24 Unknown 50 mg tablet (Senexon-S) Constipation naproxen 500 mg tablet 500 mg PO BID PRN pain #20 tabs 05/03/24 05/12/24 Unknown doxycycline monohydrate 100 mg 100 mg PO BID 10 days #20 caps 05/08/24 05/12/24 Unknown capsule methylprednisolone 4 mg tablets in See Rx Instructions .Route 05/08/24 05/12/24 Unknown a dose pack (Medrol (Ovidio)) .COMPLEX #21 ea clopidogrel 75 mg tablet (Plavix) 75 mg PO QAM 05/12/24 05/12/24 Unknown omeprazole 20 mg capsule,delayed 20 mg PO QAM 05/12/24 05/12/24 Unknown release Past Medical History Medical History Angina at rest gets from "time to time" CAD (coronary artery disease) lost to f/u Fall due to ice or snow 05/03/24 > hit right shoulder, seen at [facility] 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, but feeling 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 GERD (gastroesophageal reflux disease) HLD (hyperlipidemia) HTN (hypertension) Obesity PAD (peripheral artery disease) Pulmonary hypertension Snores no apnea testing URI (upper respiratory infection) started treatment on 05/08/24 for this > seen at [facility] ED > feels he is improving, no breathing issues per pt Past Family History Family History Mother Cancer Diabetes Brother Coronary heart disease Son Coronary heart disease Father Coronary heart disease Brother Coronary heart disease Sister Diabetes Other Dyslipidemia Hypertension Denies family history of Sudden Kidney disease Lung cancer Stroke Past Surgical History Surgical History H/O abdominal aortic aneurysm repair History of colonoscopy S/P femoral-femoral bypass surgery bilat Social History Smoking Status: Current every day smoker tobacco type: cigarettes Smoking cigarettes per day: 10-12 per day> advised npo Do You Dip or Chew Tobacco: No Hx Alcohol Use: No Alcohol type: beer alcohol intake frequency: holidays/special occasions only Hx Substance Use: No substance use type: does not use Lab Results Anesthesia Preop Results Results Anesthesia Widget: WBC 9.66 K/ul (4.8-10.8) 05/08/24 Hgb 15.6 g/dl (14.0-18.0) 05/08/24 Hct 47.6 % (42.0-52.0) 05/08/24 Plt 228 K/uL (130-400) 05/08/24 Na 139 mmol/L (136-145) 05/08/24 K 4.3 mmol/L (3.5-5.1) 05/08/24 Cl 103 mmol/L (98-107) 05/08/24 CO2 30 mmol/L (21-32) 05/08/24 BUN 20 mg/dl (6-23) 05/08/24 Creat 1.05 mg/dl (0.6-1.4) 05/08/24 Glucose Level 161 mg/dl (70-99(Fasting)) H 05/08/24 PT 11.7 Seconds (9.0-12.0) 05/08/24 PTT 31 Seconds (21-31) 05/08/24 INR 1.1 (0.9-1.1) 05/08/24 Coronavirus OC43 (PCR) Not Detected (NotDetected) 05/08/24 Coronavirus HKU1 (PCR) Not Detected (NotDetected) 05/08/24 Coronavirus 229E (PCR) Not Detected (NotDetected) 05/08/24 COVID-19 PCR Not Detected (NotDetected) 05/08/24 Coronavirus NL63 (PCR) Not Detected (NotDetected) 05/08/24 Blood Type A Positive 05/08/24 Antibody Screen NEGATIVE 05/08/24 Testing Electrocardiogram Date: 05/08/24 NSR, rate 72 bpm Left axis deviation Incomplete RBBB Minimal voltage criteria for LVH, may be normal variant Significant changes have occurred vs 05/08/24 EKG Chest X-Ray Date: 05/08/24 Stable exam; no acute process. Echocardiogram Date: 09/26/21 EF 50-55% RVSP elevated at 30-40 mmHg Hypokinesis of distal inferior wall and inferior apex Mild cLVH Grade I diastolic dysfunction Mild aortic valve sclerosis, without significant aortic valvular stenosis Mild tricuspid regurgitation Other Testing Neck CTA 05/05/24 1. Severe (90%) short segment stenosis of the proximal left internal carotid artery due to extensive noncalcified and calcified plaque. 2. Moderate plaque within the proximal right internal carotid artery without stenosis. 3. Aberrant right subclavian artery. 4. Tangle of vessels with dilated draining veins within the posterior left temporal lobe. This favors an AVM.
[2024-05-20] MEDS: LACTATED RINGER'S 1,000 ML IV SCH ×2 (09:15→14:35)
--- NOTE | 2024-05-20 09:27 | History & Physical Report ---
"Date of Service May 20, 2024 History of Present Illness Primary Care Provider: Mihai Abrams MD Reason for Consultation Left internal carotid artery stenosis History of Present Illness I had the pleasure of seeing Eric today for evaluation of his carotid disease. As you know he is a 73-year-old gentleman who we have been following for abdominal aortic aneurysm repair. He was seen recently by his encoding machine operator who discovered a left carotid bruit. Ultrasound followed by CTA showed a greater than 95% narrowing of his left internal carotid artery. He has no symptoms of cerebrovascular insufficiency. He has no symptoms of claudication. He does have a history of cardiac disease with mild mitral regurgitation and an EF of 45. There is also inferior and basal septum hypokinesis. Review of Systems 10 systems reviewed. Only positive findings are in the HPI. Physical Exam Vitals & Measurements Input and Output - Last 24 hours (Last 8 hours) No I/O Data Found: On exam he is awake alert and oriented x 3. He is in no apparent distress. His blood pressures 118/70. His radials and carotids are +2 bilaterally. There is a left carotid bruit. His lungs are clear heart had a regular rate and rhythm. Abdominal exam is benign no abnormal dilatation aorta is appreciated. Femorals and pedal pulses are +2 at the femoral pulse one of the pedal. Capillary refill is normal in both feet. Neurologic exam is intact to motor and sensory function. Assessment/Plan 1. Carotid stenosis, bilateral At this point due to moderate narrowing in his carotid recommended intervention. We went over the risks options and benefits of endarterectomy versus TCAR. He understood all the risk involved which were documented in the consent form and agreed to go ahead with the TCAR. This will be scheduled in the near future. Will keep you informed as to the results. Thank you very much for letting us participate in the care of this patient. Sincerely, Thor Cox MD Attestation I have personally spent ___25__ minutes performing [id number] and [id number] activities on this date of service. Activities Include: _x_ review of the medical record __x obtaining a history __x physical exam/evaluation __ review labs _x_ review radiology reports _x_ counseling/educating patient/family/caregiver __ discussion/referral to other healthcare professional _x_ documenting care in the medical record __x independent interpretation of results cta at [facility] __ communication of results to patient/family/caregiver __ coordination of care Problem List/Past Medical History Ongoing AAA (abdominal aortic aneurysm) Carotid stenosis, bilateral Chronic back pain Chronic cough Chronic radicular pain of lower back Chronic right hip pain Cigarette nicotine dependence without complication Coronary artery disease Hyperlipidemia Left carotid stenosis Lymphadenopathy Onychogryphosis Prediabetes RCA occlusion Sacroiliitis, not elsewhere classified Spinal stenosis, lumbar region with neurogenic claudication Tobacco user Procedure/Surgical History Plain X-ray of left wrist| Service Date: 09/10/2022 CT ANGIOGRAPH ABD & PELV W/O&W/DYE| Service Date: 06/28/2022 CT angiography of chest with contrast| Service Date: 09/07/2021 Cardiovascular stress test using the adenosine stress test protocol| Service Date: 09/05/2021 Cardiovascular stress test using the adenosine stress test protocol| Service Date: 08/22/2020 Colonoscopy| Service Date: 04/15/2019 CT ANGIOGRAPH ABD & PELV W/O&W/DYE| Service Date: 02/24/2019 AAA - Repair of abdominal aortic aneurysm| Service Date: 08/08/2018 AA - Aortic aneurysm| Service Date: 2019 Medications Home acetaminophen aspirin(aspirin 81 mg oral capsule), 81 mg= 1 cap, PO, Daily atorvastatin(atorvastatin 10 mg oral tablet), 10 mg= 1 tab, PO, Daily, 3 refills betamethasone topical(betamethasone dipropionate 0.05% topical lotion), 1 appl, topical, bid clopidogrel(Plavix 75 mg oral tablet), 75 mg= 1 tab, PO, Daily, 3 refills cyclobenzaprine(cyclobenzaprine 10 mg oral tablet), 10 mg= 1 tab, PO, bid, PRN, 1 refills fluticasone(Flovent HFA 110 mcg/inh MDI), 2 puff, inhaled, bid, 1 refills icosapent(Vascepa 1 g oral capsule), 2 g= 2 cap, PO, bid, 11 refills inhalation accessory(inhaler spacer), See Instructions ketoconazole topical(ketoconazole 2% topical shampoo), 1 appl, topical, ONCE metoprolol(Metoprolol Succinate ER 50 mg oral tablet, extended release), See Instructions omeprazole(omeprazole 20 mg oral delayed release capsule), 1 cap, PO, Daily polyethylene glycol 3350(MiraLax oral powder for reconstitution), 17 g, PO, Daily sacubitril-valsartan(Entresto 49 mg-51 mg oral tablet), 1 tab, PO, bid, 3 refills senna(Senna 8.6 mg oral tablet) triamcinolone topical(triamcinolone 0.1% topical ointment), 1 appl, topical, bid, 2 refills ubiquinone(Co-Q10 100 mg oral capsule), 200 mg= 2 cap, PO, Daily Allergies Keflex Anaphylaxis grapes concord, hives penicillin Anaphylaxis Social History Smoking Status Current every day light smoker Alcohol - Denies Alcohol Use Employment/School Status:Retired Previous employment/school:[employer] [place] Exercise - Occasional exercise - Comments: Walks dog Home/Environment Lives with:Children Living situation:Home/Independent Other risks in environment:Pets/Animal exposure Nutrition/Health Type of diet:Regular Sleeping concerns:No Feels highly stressed:Yes - Comments: Sleeps in recliner chair Substance Abuse - Denies Substance Abuse Tobacco Use:Current every day smoker Type:Cigarettes Tobacco use per day:14 Started at age:13Years Ready to change:No Family History Blood disorder: Unknown. Cancer: Unknown. Diabetes mellitus: Mother. Diabetes type: Unknown. Heart disease: Unknown. AR - myocardial infarction: Mother, Father and Brother. Stroke: Mother and Unknown. Health Status Family Member(s) Immunizations Vaccine Date Status SARS-CoV-2 mRNA (Pfizer 12+) bivalent 04/12/2022 Recorded Comments : 2022-06-07: Historical information-source unspecified influenza virus vaccine, inactivated 12/21/2021 Recorded SARS-CoV-2 mRNA (tozinameran 5y-11y) 10/17/2021 Recorded pneumococcal 23-valent vaccine 01/09/2021 Recorded SARS-CoV-2 mRNA (tozinameran 5y-11y) 01/07/2021 Recorded influenza virus vaccine, inactivated 12/02/2020 Recorded zoster vaccine, inactivated 09/16/2020 Recorded zoster vaccine, inactivated 06/25/2020 Recorded pneumococcal 13-valent vaccine 06/07/2020 Recorded SARS-CoV-2 mRNA (tozinameran 5y-11y) 05/09/2020 Recorded SARS-CoV-2 mRNA (tozinameran 5y-11y) 04/05/2020 Recorded tetanus/diphtheria/pertuss, acel (Tdap) 12/05/2018 Recorded Signature Line Electronic Signature on File Ron Cox MD Author Signature Dt/Tm: 05/07/2024 11:13 AM Wood Drill Operator Enmanuel Hurst [facility] [place] [address], [address] [place] [address] EJS Result Type: .Outpt Ltr Date of Service: May 07, 2024 09:52 EST Authorization Status: Final Subject: Consult Note Author or Import Date: MD Cox Eugene J on May 07, 2024 11:13 EST Verified By: MD Cox Eugene J on May 07, 2024 11:13 EST Encounter info: [id number], [place] [address], Clinic, 05/07/2024 - 05/07/2024 Allergies Allergy/AdvReac Type Severity Reaction Status Date / Time cephalexin [From Keflex] Allergy Severe Anaphylaxis Verified 05/20/24 09:00 Penicillins Allergy Severe Anaphylaxis Verified 05/20/24 09:00 Home Medications Medication Instructions Recorded Confirmed Type acetaminophen 500 mg tablet 1,000 mg PO Q6H PRN Pain 09/25/21 05/20/24 History (Tylenol Extra Strength) aspirin 81 mg tablet,delayed 81 mg PO QAM 09/25/21 05/20/24 History release atorvastatin 20 mg tablet 10 mg PO PM 09/25/21 05/20/24 History coenzyme Q10 100 mg capsule 100 mg PO QPM 09/25/21 05/20/24 History (CoQ-10) hydrocortisone 2.5 % topical cream 1 applic [place] BID PRN Hemorrhoids 09/25/21 05/20/24 History with perineal applicator lidocaine 5 % topical cream 1 applic topical TID PRN ANORECTAL 09/25/21 05/20/24 History PAIN metoprolol succinate 50 mg 25 mg PO PM 09/25/21 05/20/24 History tablet,extended release 24 hr sennosides 8.6 mg-docusate sodium 1 tab-cap PO YEARLY PRN 09/25/21 05/20/24 History 50 mg tablet (Senexon-S) Constipation methylprednisolone 4 mg tablets in See Rx Instructions .Route 05/08/24 05/20/24 Rx a dose pack (Medrol (Ovidio)) .COMPLEX #21 ea clopidogrel 75 mg tablet (Plavix) 75 mg PO QAM 05/12/24 05/20/24 History omeprazole 20 mg capsule,delayed 20 mg PO QAM 05/12/24 05/20/24 History release Past Med/Surg History Problem List Encounter for pre-operative examination URI (upper respiratory infection) (Acute) Wheezing (Acute) Cough (Acute) Smoker PAD (peripheral artery disease) Aortic root dilation Chest pain (Acute) HLD (hyperlipidemia) HTN (hypertension) CAD (coronary artery disease) Medical History Pulmonary hypertension GERD (gastroesophageal reflux disease) Snores Fall due to ice or snow URI (upper respiratory infection) PAD (peripheral artery disease) HLD (hyperlipidemia) HTN (hypertension) CAD (coronary artery disease) Angina at rest Obesity Surgical History History of colonoscopy S/P femoral-femoral bypass surgery H/O abdominal aortic aneurysm repair Family History Mother Cancer Diabetes Brother Coronary heart disease Son Coronary heart disease Father Coronary heart disease Brother Coronary heart disease Sister Diabetes Other Dyslipidemia Hypertension Denies family history of Sudden Kidney disease Lung cancer Stroke Social History Smoking Status: Current every day smoker Tobacco Type: Cigarettes Cigarettes Per Day: 10-12 per day> advised npo; Second Hand Exposure: No; Do You Dip or Chew Tobacco: No; Tobacco Cessation Education Requested by Patient: No Hx Alcohol Use: No Hx Substance Use: No Preferred Language: Icelandic Communication Ability: Effective Body Piercer Required: No Beliefs That Will Affect Care: None Current Living Situation: Spouse and Family Other Information That Helps Us Care for You: No Feels Safe at Home: Yes Safety Concerns: Feels Safe At This Time Assistive Devices: Denture - Upper, Denture - Lower and Glasses Results & Data Vital Signs (Past 12 Hours) Vital Signs Temp Pulse Resp BP Pulse Ox O2 Del Method 05/20/24 09:19 Room Air 05/20/24 09:17 36.5 C 64 20 114/71 91 Room Air"
--- NOTE | 2024-05-20 09:38 | History & Physical Bridge Note ---
Date of Service May 20, 2024 History & Physical Bridge Note I have examined the patient, reviewed the History & Physical and in the interval since the performance of the History & Physical I have noted the following changes of clinical significance: no changes noted
[2024-05-20] MEDS ORDERED: fentaNYL citrate PF 100 MCG/2 ML VIAL IV PRN (09:48)
[2024-05-20] MEDS ORDERED: PROMETHAZINE HCL 6.25 MG in SODIUM CHLORIDE 0.9% 50 ML IV PRN (09:48)
[2024-05-20] MEDS ORDERED: FLUMAZENIL 0.1 MG/1 ML 10 ML VIAL IV PRN (09:48)
[2024-05-20] MEDS ORDERED: NALOXONE HCL 0.4 MG/1 ML VIAL/CARP IV PRN (09:48)
[2024-05-20] MEDS ORDERED: ONDANSETRON INJ 2 MG/ML 2 ML VIAL IV PRN (09:48)
[2024-05-20] MEDS ORDERED: ePHEDrine sulfate 50 MG/ML AMP IV PRN (09:48)
[2024-05-20] MEDS ORDERED: ATROPINE SULFATE 0.1 MG/ML 10ML SYR IV PRN (09:48)
[2024-05-20] MEDS ORDERED: fentaNYL citrate PF 100 MCG/2 ML VIAL ONE (10:22)
[2024-05-20] MEDS ORDERED: MIDAZOLAM HCL 1 MG/ML 2ML VIAL ONE (10:22)
[2024-05-20] MEDS ORDERED: DEXAMETHASONE SOD INJ 4 MG/ML VIAL ONE (10:23)
[2024-05-20] MEDS ORDERED: ROCURONIUM BROMIDE 10 MG/ML 5 ML VIAL IV ONE (10:23)
[2024-05-20] MEDS ORDERED: GLYCOPYRROLATE 0.2 MG/ML VIAL ONE ×2 (10:23)
[2024-05-20] MEDS ORDERED: PROPOFOL IV EMULSION 10 MG/ML 20 ML VIAL IV ONE ×2 (10:23→10:25)
[2024-05-20] MEDS ORDERED: ONDANSETRON INJ 2 MG/ML 2 ML VIAL ONE (10:23)
[2024-05-20] MEDS ORDERED: LIDOCAINE 2% 2 ML VIAL/AMP(20MG/ML) INFIL ONE (10:23)
[2024-05-20] MEDS ORDERED: HEPARIN SOD (PORCINE) 1000 UNIT/ML ONE ×2 (10:26→11:37)
[2024-05-20] MEDS: CLINDAMYCIN/D5W 900 MG/50 ML BAG IV SCH (11:03)
[2024-05-20] MEDS ORDERED: ePHEDrine sulfate 50 MG/5 ML SYR ONE (11:17)
[2024-05-20] MEDS ORDERED: VASOPRESSIN 20 UNIT/ML VIAL ONE ×2 (11:17→11:19)
[2024-05-20] MEDS ORDERED: PHENYLEPHRINE HCL 25 MG/250 ML NSS IV ONE (11:28)
[2024-05-20] MEDS ORDERED: PROTAMINE SULFATE 10 MG/ML 5 ML VIAL IV ONE (11:49)
[2024-05-20] MEDS ORDERED: SUGAMMADEX SODIUM 200 MG/2 ML VIAL IV ONE ×2 (11:56→11:57)
[2024-05-20] MEDS: VISIPAQUE IV ONE ×2 (11:59→12:00)
[2024-05-20] MEDS: BUPIVACAINE/EPINEPHRINE 0.5% MPF 1:200,000 30 ML VIAL ONE (12:00)
--- NOTE | 2024-05-20 12:06 | Procedure Note ---
Angiogram Post Procedure Fluoroscopy Time (minutes): 1.5 Radiation (mGy): 33 Contrast: 15 Post Operative Report Pre & Post Diagnosis Operation Date: 05/20/24 10:15 Pre-Op Diagnosis: Left Internal Carotid Artery Stenosis Post-Op Diagnosis: Left Internal Carotid Artery Stenosis I identified the patient and participated in the time-out.: Yes Procedure Operation Date: 05/20/24 10:15 Actual Procedures p Left Transcarotid Artery Revascularization(Left), Ultrasound localization of right common femoral vein - Ron Cox MD Surgeon Ron Cox MD [employer] Cake Decorator Yuliet,PAC Estimated Blood Loss 15 Findings Consistent with Post-Op Diagnosis Specimens none Anesthesia Type General Complications none Disposition Accompanied Patient To Recovery: No Disposition: Recovery Room Indications This is a 73 gentleman who was found to have a carotid bruit by his merchandise supervisor. Ultrasound shows severe stenosis of the left internal carotid artery. This was confirmed with CT angiogram. Intervention was recommended. He elected to go ahead with a TCAR versus endarterectomy. I have discussed the risks options and benefits of the procedure with the patient. The patient understands the risks options and benefits and agrees to the procedure. Description of Procedure The patient was taken to the operating room and placed in supine position. After general anesthesia was accomplished the groins and left side of the neck and chest were prepped and draped in a sterile manner. Timeout was performed and the patient was identified. A transverse incision was made just above the clavicle between the heads of the sternocleidomastoid. This is carried down to where the common carotid artery was identified. It was isolated. It was slung with umbilical tape. Next the U stitch was placed in the common carotid artery with a 5-0 Prolene suture. Patient was given 8000 heparin at that time. Ultrasound was then used to localize the left common femoral vein. The vein was patent and compressed easily. Under ultrasound guidance the right common fem oral vein was punctured and the venous sheath was inserted. This was aspirated and flushed with heparinized saline. ACT at that time was 243. This time we will give another 2000 heparin. Using micropuncture technique the common carotid artery was punctured using a tunneling technique.. The micro sheath was inserted to 3 cm. Injection was then done showing the bifurcation. There was a significant lesion seen at the origin of the internal carotid artery on the left side. We then inserted the J-wire left and short of the lesion. The micro sheath was removed and the TCAR sheath was inserted. Once it was in place at approximately 2 and half centimeters within the artery it was sutured to the chest wall and the incision edge. We then flushed the tubing appropriately. The venous return to was clamped onto the TCAR sheath. It was flushed through and then attached to the venous inflow sheath in the left groin. Sheath was checked for flow. The saline cleared nicely. The common carotid artery was then clamped. Flow reversal was instituted.The flow reversal was again checked for flow and found to have good flow after clamping. We inserted a 6 x 25 balloon backloaded on the wire. The wire was passed through the lesion into the petrous portion of the internal carotid. The 6 balloon was then advanced to the lesion. Lesion was then predilated with a 6 mm balloon. Balloon was removed. We then inserted the 9/7 x 40 stent. This was deployed across the lesion without difficulty. The catheter was removed. The carotid was allowed to go 2 minutes with flow reversal. Completion angiogram was done at that time which showed a widely patent carotid stent. At that point the common carotid artery was unclamped. The venous return tubing was clamped and removed from the TCAR sheath. The blood was allowed to flow back into the venous system. The TCAR sheath was then removed and the 5-0 Prolene suture securely tied. The patient was given 25 mg of protamine. Hemostasis was noted of the puncture site. An ACT was then drawn. The ACT was 129. The sheath was pulled from the groin and pressure was applied. Wound was irrigated with saline solution. Adequate hemos tasis was obtained of the wound. Once this was noted the wound was closed in usual fashion using a 3-0 Vicryl suture for the subcutaneous layer and a 4-0 subcuticular Vicryl suture for the skin edges. Dermabond was used for dressing. The patient left the operation room in satisfactory condition and tolerated the procedure well. All needle and sponge counts were correct at the end of the procedure. Marjorie Oconnor Pac assisted due to lack of resident availability and was necessary for positioning, draping, retraction, wound closure deep layers, subcutaneous tissue, and skin closure and was necessary for assisting with the case. I attest to the content of the Intraoperative Record and any orders documented therein. Any exceptions are noted below.
[2024-05-20] MEDS ORDERED: PHENYLEPHRINE/NSS 25 MG/250 ML BAG IV PRN (13:53)
[2024-05-20] MEDS ORDERED: HYDROCORTISONE HC 2.5% CRM 30GM TUBE EXT PRN (13:53)
[2024-05-20] MEDS ORDERED: DOCUSATE SODIUM/SENNA 50/8.6MG TAB PO PRN (13:53)
[2024-05-20] MEDS ORDERED: oxyCODONE/ACETAMINOPHEN 5mg/325mg TAB PO PRN (13:53)
[2024-05-20] MEDS ORDERED: STAT IV Infusion **Titration per Protocol STA (13:53)
[2024-05-20] MEDS ORDERED: ACETAMINOPHEN 500 MG TAB PO PRN (13:53)
--- NOTE | 2024-05-20 13:53 | Anesthesiology Progress Note ---
Date of Service May 20, 2024 Anesthesia Post Procedure Vital Signs Vital Signs: Temp Pulse Pulse Resp BP BP BP 05/20/24 13:10 78 16 107/43 L 106/40 L 05/20/24 13:00 36.4 C L 79 16 102/52 L 107/40 L 05/20/24 12:50 81 18 104/40 L 106/47 L 05/20/24 12:40 84 16 104/41 L 101/58 L 05/20/24 12:30 82 18 102/57 L 106/44 L 05/20/24 12:22 36.4 C L 81 18 108/72 05/20/24 09:19 05/20/24 09:17 36.5 C 64 20 114/71 Pulse Ox O2 Del Method O2 Flow Rate 05/20/24 13:10 94 Room Air 05/20/24 13:00 94 Room Air 05/20/24 12:50 94 Room Air 05/20/24 12:40 95 Oxymask 4 05/20/24 12:30 97 Oxymask 6 05/20/24 12:22 95 Oxymask 8 05/20/24 09:19 Room Air 05/20/24 09:17 91 Room Air Transfer of Care Handoff Completed per policy Notes Mental Status: alert / awake / arousable Patient Amnestic to Procedure: Yes Nausea / Vomiting: adequately controlled Pain: adequately controlled Airway Patency, RR, SpO2: stable & adequate BP & HR: stable & adequate Hydration State: stable & adequate Anesthetic Complications: no major complications apparent
--- NOTE | 2024-05-20 14:13 | Critical Care Consultation ---
Date of Consultation May 20, 2024 Assessment & Plan (1) PAD (peripheral artery disease): (2) Carotid stenosis: Plan Impression: 73-year-old male with incidentally noted asymptomatic carotid stenosis status post TCAR on the left. He is extubated and hemodynamically stable and doing well clinically. Recommendations: 1. Post left-sided TCAR: Management per vascular surgery. 2. Hypertension: Blood pressure goals as established per vascular surgery. Outpatient medications in the form of metoprolol have been reinitiated. 3. Defer antiplatelet and anticoagulation issues to vascular surgery. 3. Will continue to follow in the ICU to ensure hemodynamic stability and for any new neurological complaints. Ultimate disposition per vascular surgery. The patient's remaining critical care issues have been well addressed by the vascular surgery service. Will follow overnight in the event that he has issues. Feel free to contact us with questions or concerns History of Present Illness Attending Physician: Ron Cox MD History of Present Illness Asked by vascular surgery to assist in evaluation management this patient status post TCAR on the left. History is obtained from discussion with the patient and family at bedside as well as review the electronic medical record. Patient is a 73-year-old male who on screening was found to have a 90% stenosis of the left internal carotid artery. He was asymptomatic. He has known aortic aneurysm which is being followed. He was seen in the clinic and felt appropriate for TCAR which was accomplished today without difficulty. He was extubated. He is brought to the ICU hemodynamically stable. His only complaint currently is dry mouth. He denies any voice changes, difficulty speaking or swallowing, or neurological symptoms. Allergies Allergy/AdvReac Type Severity Reaction Status Date / Time cephalexin [From Keflex] Allergy Severe Anaphylaxis Verified 05/20/24 09:00 Penicillins Allergy Severe Anaphylaxis Verified 05/20/24 09:00 Home Medications Medication Instructions Recorded Confirmed Type acetaminophen 500 mg tablet 1,000 mg PO Q6H PRN Pain 09/25/21 05/20/24 History (Tylenol Extra Strength) aspirin 81 mg tablet,delayed 81 mg PO QAM 09/25/21 05/20/24 History release atorvastatin 20 mg tablet 10 mg PO PM 09/25/21 05/20/24 History coenzyme Q10 100 mg capsule 100 mg PO QPM 09/25/21 05/20/24 History (CoQ-10) hydrocortisone 2.5 % topical cream 1 applic [place] BID PRN Hemorrhoids 09/25/21 05/20/24 History with perineal applicator lidocaine 5 % topical cream 1 applic topical TID PRN ANORECTAL 09/25/21 05/20/24 History PAIN metoprolol succinate 50 mg 25 mg PO PM 09/25/21 05/20/24 History tablet,extended release 24 hr sennosides 8.6 mg-docusate sodium 1 tab-cap PO YEARLY PRN 09/25/21 05/20/24 History 50 mg tablet (Senexon-S) Constipation methylprednisolone 4 mg tablets in See Rx Instructions .Route 05/08/24 05/20/24 Rx a dose pack (Medrol (Ovidio)) .COMPLEX #21 ea clopidogrel 75 mg tablet (Plavix) 75 mg PO QAM 05/12/24 05/20/24 History omeprazole 20 mg capsule,delayed 20 mg PO QAM 05/12/24 05/20/24 History release Entresto 24 mg PO BID 05/20/24 05/20/24 History Patient History Medical History Pulmonary hypertension GERD (gastroesophageal reflux disease) Snores Fall due to ice or snow URI (upper respiratory infection) PAD (peripheral artery disease) HLD (hyperlipidemia) HTN (hypertension) CAD (coronary artery disease) Angina at rest Obesity Surgical History History of colonoscopy S/P femoral-femoral bypass surgery H/O abdominal aortic aneurysm repair Family History Mother Cancer Diabetes Brother Coronary heart disease Son Coronary heart disease Father Coronary heart disease Brother Coronary heart disease Sister Diabetes Other Dyslipidemia Hypertension Denies family history of Sudden Kidney disease Lung cancer Stroke Social History Smoking Status: Current every day smoker Tobacco Type: Cigarettes Cigarettes Per Day: 10-12 per day> advised npo; Second Hand Exposure: No; Do You Dip or Chew Tobacco: No; Tobacco Cessation Education Requested by Patient: No Hx Alcohol Use: No Hx Substance Use: No Preferred Language: Vietnamese Communication Ability: Effective Legal Executive Required: No Beliefs That Will Affect Care: None Current Living Situation: Spouse and Family Other Information That Helps Us Care for You: No Feels Safe at Home: Yes Safety Concerns: Feels Safe At This Time Assistive Devices: Denture - Upper, Denture - Lower and Glasses Review of Systems Review of Systems: Please refer to admission H&P. No additions or deletions Physical Exam Constitutional: WD/WN, vitals as above Neck: trachea midline, no thyromegaly Respiratory: normal respiratory effort, lungs clear to auscultation Cardiovascular: RRR, no murmur, no edema Gastrointestinal (Abdomen): normal bowel sounds, soft, nontender, no hepatosplenomegaly Musculoskeletal: Extremities: extremities normal to inspection Skin: no rashes, warm and dry Neurologic: Nonfocal exam Lymphatic: no cervical lymphadenopathy Results & Data Results & Data Vital Signs (Past 12 Hours) Vital Signs Temp Pulse Pulse Resp BP BP BP 05/20/24 13:20 36.6 C 72 20 96/59 L 99/46 L 05/20/24 13:10 78 16 107/43 L 106/40 L 05/20/24 13:00 36.4 C L 79 16 102/52 L 107/40 L 05/20/24 12:50 81 18 104/40 L 106/47 L 05/20/24 12:40 84 16 104/41 L 101/58 L 05/20/24 12:30 82 18 102/57 L 106/44 L 05/20/24 12:22 36.4 C L 81 18 108/72 05/20/24 09:19 05/20/24 09:17 36.5 C 64 20 114/71 Pulse Ox O2 Del Method O2 Flow Rate 05/20/24 13:20 97 Nasal Cannula 2 05/20/24 13:10 94 Room Air 05/20/24 13:00 94 Room Air 05/20/24 12:50 94 Room Air 05/20/24 12:40 95 Oxymask 4 05/20/24 12:30 97 Oxymask 6 05/20/24 12:22 95 Oxymask 8 05/20/24 09:19 Room Air 05/20/24 09:17 91 Room Air Critical Care Results & Data Vital Signs (Past 12 Hours) Vital Signs Temp Pulse Pulse Resp BP BP BP 05/20/24 13:20 36.6 C 72 20 96/59 L 99/46 L 05/20/24 13:10 78 16 107/43 L 106/40 L 05/20/24 13:00 36.4 C L 79 16 102/52 L 107/40 L 05/20/24 12:50 81 18 104/40 L 106/47 L 05/20/24 12:40 84 16 104/41 L 101/58 L 05/20/24 12:30 82 18 102/57 L 106/44 L 05/20/24 12:22 36.4 C L 81 18 108/72 05/20/24 09:19 05/20/24 09:17 36.5 C 64 20 114/71 Pulse Ox O2 Del Method O2 Flow Rate 05/20/24 13:20 97 Nasal Cannula 2 05/20/24 13:10 94 Room Air 05/20/24 13:00 94 Room Air 05/20/24 12:50 94 Room Air 05/20/24 12:40 95 Oxymask 4 05/20/24 12:30 97 Oxymask 6 05/20/24 12:22 95 Oxymask 8 05/20/24 09:19 Room Air 05/20/24 09:17 91 Room Air Lab & Micro Results (Past 24 Hours) No Data to Display No Data to Display No Data to Display I & O Totals 24 Hours 05/19/24 05/20/24 05/21/24 06:59 06:59 06:59 Intake Total 1550 / 1550 Output Total 15 / 15 Balance 1535 / 1535 Cumulative 05/07/24 14:01 thru 05/20/24 13:55 Intake Total 1550 Output Total 15 Balance 1535 RT Ventilator Mngmt (Last Documented) Ventilator Ordered Settings Respiratory Rate 20 05/20/24 13:20 Ventilator - PT Measurements Respiratory Rate 20 Coding Level of Care Code 57931 INT INP/OBS CARE 2/55MIN Diagnoses PAD (peripheral artery disease) I73.9 Carotid stenosis I65.29
[2024-05-20] MEDS ORDERED: LIDOCAINE 4% CREAM 15 GM TUBE EXT PRN (14:19)
[2024-05-20] MEDS: CLINDAMYCIN/D5W 600 MG/50 ML BAG IV SCH (15:58)
[2024-05-20] MEDS ORDERED: NON-FORMULARY MEDICATION (Coenzyme Q10 [Coq-10] 100 mg Capsule) PO SCH (21:00)
[2024-05-20] MEDS: METOPROLOL SUCC 25MG EXT REL TAB PO SCH (21:15)
[2024-05-20] MEDS: VALSARTAN/SACUBITRIL 26/24MG TAB PO SCH (21:17)
[2024-05-20] MEDS: ATORVASTATIN 10 MG TAB PO SCH (21:17)
[2024-05-21] MEDS: CLINDAMYCIN/D5W 900 MG/50 ML BAG IV ONE (05:55)
--- NOTE | 2024-05-21 07:20 | Critical Care Progress Note ---
Date of Service May 21, 2024 Assessment & Plan (1) PAD (peripheral artery disease): (2) Carotid stenosis: Plan Impression: 73-year-old male with incidentally noted asymptomatic carotid stenosis status post TCAR on the left yesterday. He is doing well clinically with no new complaints or clinical concerns Recommendations: 1. Post left-sided TCAR: Management per vascular surgery. Disposition per vascular surgery 2. Hypertension: Blood pressure goals as established per vascular surgery. Continue outpatient meds. Discontinue arterial line 3. Defer antiplatelet and anticoagulation issues to vascular surgery. Patient's critical care issues are resolved. Critical care will sign off. Feel free to contact us with questions or concerns Admission and Anticipated Discharge Date Admission Date: May 20, 2024 Subjective Patient seen and examined. EMR reviewed. Discussed with overnight critical care DAVEY and with bedside critical care nurse. The patient is doing well this morning. He sitting up in a chair. His pain is reasonably well-controlled. He does complain of a slight sore throat. He is able to eat and drink. He is been hemodynamically stable. No new neurological complaints. Review of Systems Review of Systems: All systems reviewed & are unremarkable except as noted in Subjective Physical Exam Constitutional: WD/WN, vitals as above Neck: trachea midline, no thyromegaly Respiratory: normal respiratory effort, lungs clear to auscultation Cardiovascular: RRR, no murmur, no edema Gastrointestinal (Abdomen): normal bowel sounds, soft, nontender, no hepatosplenomegaly Musculoskeletal: Extremities: extremities normal to inspection Skin: no rashes, warm and dry Lymphatic: no cervical lymphadenopathy Results & Data Results & Data Vital Signs (Past 12 Hours) Vital Signs Temp Pulse Resp BP Pulse Ox O2 Del Method O2 Flow Rate 05/21/24 06:03 64 21 110/45 L 95 Nasal Cannula 2 05/21/24 05:00 50 L 18 111/46 L 96 Nasal Cannula 2 05/21/24 04:00 36.6 C 63 24 140/45 L 96 Nasal Cannula 2 05/21/24 03:00 60 20 118/56 L 94 Nasal Cannula 3 05/21/24 02:00 54 L 18 112/49 L 94 Nasal Cannula 3 05/21/24 01:00 63 20 102/48 L 93 Nasal Cannula 3 05/21/24 00:00 36.6 C 55 L 22 106/51 L 96 Nasal Cannula 3 05/20/24 23:00 65 21 105/52 L 95 Nasal Cannula 3 05/20/24 22:01 65 22 128/51 L 94 Room Air 05/20/24 21:00 72 24 117/50 L 94 Nasal Cannula 3 05/20/24 20:06 36.8 C 71 21 117/48 L 94 Nasal Cannula 3 05/20/24 20:00 Nasal Cannula 3 Coding Level of Care Code 44203 SUB INP/OBS CARE 235MIN Diagnoses PAD (peripheral artery disease) I73.9 Carotid stenosis I65.29
[2024-05-21] MEDS: LACTATED RINGER'S 1,000 ML IV SCH (08:09)
[2024-05-21] MEDS: ASPIRIN 81 MG ECTAB PO SCH (08:13)
[2024-05-21] MEDS: CLOPIDOGREL BISULFATE 75 MG TAB PO SCH (08:13)
[2024-05-21] MEDS: PANTOprazole 40 MG TAB PO SCH (08:14)
[2024-05-21 08:30] VITALS: BP 105/42; RESP 22; O2SAT 92
[2024-05-21 08:37] VITALS: PULSE 72
[2024-05-21 10:39] VITALS: TEMP 98.1
--- NOTE | 2024-05-21 13:12 | Surgery Progress Note ---
Date of Service May 21, 2024 Assessment & Plan (1) S/P vascular surgery: Plan: Patient post op from a tcar. Doing well without neuro deficits. Will d\c today Admission and Anticipated Discharge Date Admission Date: May 20, 2024 Subjective Patient without complaints. Denies any focal deficits. Physical Exam Constitutional: WD/WN, vitals as above Neck: trachea midline Respiratory: normal respiratory effort; no respiratory distress Cardiovascular: Rate/Rhythm: regular rate and regular rhythm Skin: + incision (small amount of ecchymosis) Neurologic: CN's II-XI intact bilaterally and moves all extremities Psychiatric: A+Ox3, euthymic affect Results & Data Vital Signs (Past 12 Hours) Vital Signs Temp Pulse Pulse Resp BP BP Pulse Ox 05/21/24 10:37 36.7 C 05/21/24 08:35 36.6 C 72 22 105/42 L 92 05/21/24 08:24 61 22 105/42 L 92 05/21/24 08:00 05/21/24 08:00 67 05/21/24 07:06 54 L 24 138/66 94 05/21/24 06:03 64 21 110/45 L 95 05/21/24 05:00 50 L 18 111/46 L 96 05/21/24 04:00 36.6 C 63 24 140/45 L 96 05/21/24 03:00 60 20 118/56 L 94 05/21/24 02:00 54 L 18 112/49 L 94 O2 Del Method O2 Flow Rate 05/21/24 10:37 05/21/24 08:35 05/21/24 08:24 Room Air 05/21/24 08:00 Room Air 05/21/24 08:00 05/21/24 07:06 Nasal Cannula 2 05/21/24 06:03 Nasal Cannula 2 05/21/24 05:00 Nasal Cannula 2 05/21/24 04:00 Nasal Cannula 2 05/21/24 03:00 Nasal Cannula 3 05/21/24 02:00 Nasal Cannula 3
--- NOTE | 2024-05-21 13:17 | Discharge Summary ---
"Date of Service May 21, 2024 Admission HPI Per Admitting Provider Reason for Consultation Left internal carotid artery stenosis History of Present Illness I had the pleasure of seeing Eric today for evaluation of his carotid disease. As you know he is a 73-year-old gentleman who we have been following for abdominal aortic aneurysm repair. He was seen recently by his cotton program technician who discovered a left carotid bruit. Ultrasound followed by CTA showed a greater than 95% narrowing of his left internal carotid artery. He has no symptoms of cerebrovascular insufficiency. He has no symptoms of claudication. He does have a history of cardiac disease with mild mitral regurgitation and an EF of 45. There is also inferior and basal septum hypokinesis. Review of Systems 10 systems reviewed. Only positive findings are in the HPI. Physical Exam Vitals & Measurements Input and Output - Last 24 hours (Last 8 hours) No I/O Data Found: On exam he is awake alert and oriented x 3. He is in no apparent distress. His blood pressures 118/70. His radials and carotids are +2 bilaterally. There is a left carotid bruit. His lungs are clear heart had a regular rate and rhythm. Abdominal exam is benign no abnormal dilatation aorta is appreciated. Femorals and pedal pulses are +2 at the femoral pulse one of the pedal. Capillary refill is normal in both feet. Neurologic exam is intact to motor and sensory function. Assessment/Plan 1. Carotid stenosis, bilateral At this point due to moderate narrowing in his carotid recommended intervention. We went over the risks options and benefits of endarterectomy versus TCAR. He understood all the risk involved which were documented in the consent form and agreed to go ahead with the TCAR. This will be scheduled in the near future. Will keep you informed as to the results. Thank you very much for letting us participate in the care of this patient. Sincerely, Thor Cox MD Attestation I have personally spent ___25__ minutes performing [id number] and [id number]- face activities on this date of service. Activities Include: _x_ review of the medical record __x obtaining a history __x physical exam/evaluation __ review labs _x_ review radiology reports _x_ counseling/educating patient/family/caregiver __ discussion/referral to other healthcare professional _x_ documenting care in the medical record __x independent interpretation of results cta at [facility] __ communication of results to patient/family/caregiver __ coordination of care Problem List/Past Medical History Ongoing AAA (abdominal aortic aneurysm) Carotid stenosis, bilateral Chronic back pain Chronic cough Chronic radicular pain of lower back Chronic right hip pain Cigarette nicotine dependence without complication Coronary artery disease Hyperlipidemia Left carotid stenosis Lymphadenopathy Onychogryphosis Prediabetes RCA occlusion Sacroiliitis, not elsewhere classified Spinal stenosis, lumbar region with neurogenic claudication Tobacco user Procedure/Surgical History Plain X-ray of left wrist| Service Date: 09/10/2022 CT ANGIOGRAPH ABD & PELV W/O&W/DYE| Service Date: 06/28/2022 CT angiography of chest with contrast| Service Date: 09/07/2021 Cardiovascular stress test using the adenosine stress test protocol| Service Date: 09/05/2021 Cardiovascular stress test using the adenosine stress test protocol| Service Date: 08/22/2020 Colonoscopy| Service Date: 04/15/2019 CT ANGIOGRAPH ABD & PELV W/O&W/DYE| Service Date: 02/24/2019 AAA - Repair of abdominal aortic aneurysm| Service Date: 08/08/2018 AA - Aortic aneurysm| Service Date: 2018 Medications Home acetaminophen aspirin(aspirin 81 mg oral capsule), 81 mg= 1 cap, PO, Daily atorvastatin(atorvastatin 10 mg oral tablet), 10 mg= 1 tab, PO, Daily, 3 refills betamethasone topical(betamethasone dipropionate 0.05% topical lotion), 1 appl, topical, bid clopidogrel(Plavix 75 mg oral tablet), 75 mg= 1 tab, PO, Daily, 3 refills cyclobenzaprine(cyclobenzaprine 10 mg oral tablet), 10 mg= 1 tab, PO, bid, PRN, 1 refills fluticasone(Flovent HFA 110 mcg/inh MDI), 2 puff, inhaled, bid, 1 refills icosapent(Vascepa 1 g oral capsule), 2 g= 2 cap, PO, bid, 11 refills inhalation accessory(inhaler spacer), See Instructions ketoconazole topical(ketoconazole 2% topical shampoo), 1 appl, topical, ONCE metoprolol(Metoprolol Succinate ER 50 mg oral tablet, extended release), See Instructions omeprazole(omeprazole 20 mg oral delayed release capsule), 1 cap, PO, Daily polyethylene glycol 3350(MiraLax oral powder for reconstitution), 17 g, PO, Daily sacubitril-valsartan(Entresto 49 mg-51 mg oral tablet), 1 tab, PO, bid, 3 refills senna(Senna 8.6 mg oral tablet) triamcinolone topical(triamcinolone 0.1% topical ointment), 1 appl, topical, bid, 2 refills ubiquinone(Co-Q10 100 mg oral capsule), 200 mg= 2 cap, PO, Daily Allergies Keflex Anaphylaxis grapes concord, hives penicillin Anaphylaxis Social History Smoking Status Current every day light smoker Alcohol - Denies Alcohol Use Employment/School Status:Retired Previous employment/school:[employer] Exercise - Occasional exercise - Comments: Walks dog Home/Environment Lives with:Children Living situation:Home/Independent Other risks in environment:Pets/Animal exposure Nutrition/Health Type of diet:Regular Sleeping concerns:No Feels highly stressed:Yes - Comments: Sleeps in recliner chair Substance Abuse - Denies Substance Abuse Tobacco Use:Current every day smoker Type:Cigarettes Tobacco use per day:14 Started at age:13Years Ready to change:No Family History Blood disorder: Unknown. Cancer: Unknown. Diabetes mellitus: Mother. Diabetes type: Unknown. Heart disease: Unknown. NH - myocardial infarction: Mother, Father and Brother. Stroke: Mother and Unknown. Health Status Family Member(s) Immunizations Vaccine Date Status SARS-CoV-2 mRNA (Pfizer 12+) bivalent 04/12/2022 Recorded Comments : 2022-06-07: Historical information-source unspecified influenza virus vaccine, inactivated 12/21/2021 Recorded SARS-CoV-2 mRNA (tozinameran 5y-11y) 10/17/2021 Recorded pneumococcal 23-valent vaccine 01/09/2021 Recorded SARS-CoV-2 mRNA (tozinameran 5y-11y) 01/07/2021 Recorded influenza virus vaccine, inactivated 12/02/2020 Recorded zoster vaccine, inactivated 09/16/2020 Recorded zoster vaccine, inactivated 06/25/2020 Recorded pneumococcal 13-valent vaccine 06/07/2020 Recorded SARS-CoV-2 mRNA (tozinameran 5y-11y) 05/09/2020 Recorded SARS-CoV-2 mRNA (tozinameran 5y-11y) 04/05/2020 Recorded tetanus/diphtheria/pertuss, acel (Tdap) 12/05/2018 Recorded Signature Line Electronic Signature on File Ron Cox MD Author Signature Dt/Tm: 05/07/2024 11:13 AM Postal Worker Enmanuel Hurst [facility] [place] [address], [address] [place] [address] EJS Result Type: .Outpt Ltr Date of Service: May 07, 2024 09:52 EST Authorization Status: Final Subject: Consult Note Author or Import Date: MD Cox Eugene J on May 07, 2024 11:13 EST Verified By: MD Cox Eugene J on May 07, 2024 11:13 EST Encounter info: [id number], [place] [id number], Clinic, 05/07/2024 - 05/07/2024 Admission Exam Per Admitting Provider On exam he is awake alert and oriented x 3. He is in no apparent distress. His blood pressures 118/70. His radials and carotids are +2 bilaterally. There is a left carotid bruit. His lungs are clear heart had a regular rate and rhythm. Abdominal exam is benign no abnormal dilatation aorta is appreciated. Femorals and pedal pulses are +2 at the femoral pulse one of the pedal. Capillary refill is normal in both feet. Neurologic exam is intact to motor and sensory function . Principal Diagnosis Left inernal carotid artery stenosis Discharge Exam Constitutional WD/WN, vitals as above Neck trachea midline Respiratory normal respiratory effort; no respiratory distress Cardiovascular Rate/Rhythm: regular rate and regular rhythm Skin + incision (small amount of ecchymosis) Neurologic CN's II-XI intact bilaterally and moves all extremities Psychiatric A+Ox3, euthymic affect Discharge Data Allergies Allergy/AdvReac Type Severity Reaction Status Date / Time cephalexin [From Keflex] Allergy Severe Anaphylaxis Verified 05/20/24 09:00 Penicillins Allergy Severe Anaphylaxis Verified 05/20/24 09:00 Consultations 03/05/25 13:53 Consult Panel Sewer Routine Procedures Performed Operation Date: 05/20/24 10:15 Actual Procedures p Left Transcarotid Artery Revascularization(Left) - Ron Cox MD Ordered Studies 05/20/24 07:20 EV angio carotid cerv LT Routine US EV guide vascular access Routine Hospital Course (1) S/P vascular surgery: Patient post op from a tcar. Doing well without neuro deficits. Will d\\c today Total Time Total Time Spent Total Time Spent (In Minutes): x Discharge Plan Discharge Items Patient Disposition: Home - Self-Care Reason For Visit: Left Internal Carotid Artery Stenosis Discharge Diagnosis: Left internal carotid artery stenosis Activity: Per Instructions section Bathing Comment: May shower starting tomorrow Non-emergency contact: Surgeon Call non-emergency contact if: your temperature is above 101.5, your wound has increased redness, your wound has increased drainage and your wound pain has increased Follow-up/Referrals: Mihai Abrams MD [Primary Care Provider] - Diet: Heart Healthy Addtl Attending Provider Instructions: SPECIAL CARE INSTRUCTIONS: Diet: * You may return to previous diet. Medications: * Continue to take Aspirin, plavix, and statin as directed. Incision Care: * You may shower, but do not rub incision. You may let the warm soapy water run over it. Be sure to dry the incision well after bathing. * Do not shave directly over the incision until it is healed. * DO NOT IMMERSE THE INCISION IN A TUB/POOL/etc. UNTIL HEALED. Restrictions: * Do not drive for at least one week or if you are still taking any narcotic pain medication. * Do not lift anything heavier than a gallon of milk for one week after going home. Possible Complications: * Numbness - It is normal to have some numbness around the incision. Numbness can extend beyond the incision to areas of the neck, ear and face. The numbness is due to bruising of nerves during the surgery and will gradually improve over a period of months. * Hoarseness/Difficulty Speaking and Swallowing - The bruising of nerves in the neck can also cause a hoarse voice, difficulty speaking or swallowing. This may improve over time, HOWEVER, if it continues for more than a few days please contact our office ([phone]). * Excessive Swelling - There will be some swelling immediately after surgery which usually resolves within one week. If you notice that the swelling is getting worse, notify your surgeon ([phone]). * Drainage/Bleeding - If there is any drainage or bleeding, it should be a very small amount (less than a teaspoon per day). If you have excessive bleeding or drainage from the incision, call your surgeon ([phone]) right away. ACTIVATION OF EMERGENCY MEDICAL SYSTEM: Call 911, immediately, if you experience any of the following: Warning Signs and Symptoms of Stroke: * Sudden numbness or weakness of the face, arm or leg, especially on one side of the body * Sudden confusion, trouble speaking or understanding * Sudden trouble seeing in one or both eyes * Sudden trouble walking, dizziness, loss of balance or coordination * Sudden severe headache with no cause Do not delay calling 911 if you experience any warning signs or symptoms of a stroke. Delay in seeking medical attention may affect what treatments can be given to you. Risk Factors for Stroke: You can reduce your chances of stroke by working with your medical provider to adopt a healthy lifestyle. Some specific ways to lower your chance of stroke are: * If you are a smoker, now is the time to stop smoking cigarettes * If you are diabetic, improve the control of your blood sugars * Avoid excessive amounts of alcohol * Control high blood pressure * Lose weight if you are overweight * Be sure to lead an active lifestyle * Eat a healthy diet low in salt, cholesterol and fat You should know about other risk factors for stroke that you are unable to control. These include: * Age 55 years or older * Male gender * Certain racial groups: , or / * Family History of Stroke, Mini stroke or Heart Attack * Sickle Cell Disease You will be receiving a call from the Vascular Surgery Nurse after you are discharged. FOLLOW UP VISIT: It is important for you to keep your follow up appointments with your medical provider. Keep any scheduled doctor appointments. Call [phone] to schedule a follow up appointment if one not already scheduled. Pending Studies at Discharge: No Stand-Alone Forms: My [employer], Smoking Cessation Medications and DC Order Prescriptions: New oxycodone-acetaminophen [Percocet] 5-325 mg tablet 1 tab PO TID PRN (Reason: pain) Qty: 10 0RF Continued atorvastatin 20 mg tablet 10 mg PO PM lidocaine 5 % Cream 1 applic TOPICAL TID PRN (Reason: ANORECTAL PAIN) metoprolol succinate 50 mg tablet extended release 24 hr 25 mg PO PM sennosides-docusate sodium [Senexon-S] 8.6-50 mg Tablet 1 tab-cap PO YEARLY PRN (Reason: Constipation) aspirin 81 mg Tablet,Delayed Release (Dr/Ec) 81 mg PO QAM acetaminophen [Tylenol Extra Strength] 500 mg Tablet 1,000 mg PO Q6H PRN (Reason: Pain) hydrocortisone 2.5 % Cream With Perineal Applicator 1 applic IA BID PRN (Reason: Hemorrhoids) coenzyme Q10 [CoQ-10] 100 mg Capsule 100 mg PO QPM omeprazole 20 mg capsule,delayed release(DR/EC) 20 mg PO QAM clopidogrel [Plavix] 75 mg Tablet 75 mg PO QAM Entresto tablet 24 mg PO BID methylprednisolone [Medrol (Ovidio)] 4 mg tablets,dose pack See Rx Instructions .ROUTE .COMPLEX Qty: 21 0RF Rx Instructions: take as directed on package Discharge Orders: Discharge Order (Routine); Ordered 05/21/24 Ordered By: Ron Cox Admission Data Admit Date/Time: 05/20/24 11:55 Attending Provider: Ron Cox Admit Provider: Ron Cox Primary Care Provider: Mihai Abrams Other Providers: Jaspal Etienne; Jett Prakash; Lebron Vazquez; Nir Anglin; Tita Avendano; Teodoro Ferraro; Indu Cunningham Other Interventions: Discharge Summary Assessment (RN) Last Done: 05/21/24 08:35"
== END 2024-05-21 13:46 | disposition home or self-care (01) | DRG 36 ==
LOC: ASU 08:29 → 1E 11:55
PROC: EV.TCAR (2024-05-20 10:15)